=== PATIENT | female | born 1945 | race Caucasian/White ===

== ENCOUNTER → 2017-02-15 | Outpatient (CLI) | payer MEDICARE ==
[2017-02-15 17:44] LABS: Blood Urea Nitrogen 13 mg/dL (7-17); Non-African American GFR(MDRD) >60 (>60 ml/min/1.73 sqM)
== END | disposition home or self-care (01) ==
LOC: LABWHC1 16:58
PROVIDERS: ATTEND Family Medicine
DX: G51.0 Bell's palsy (principal)
CPT/HCPCS: 36415; 82565; 84520

== ENCOUNTER → 2017-02-16 | Outpatient (CLI) | payer MEDICARE ==
--- NOTE | 2017-02-16 15:59 | MR ---
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 TECHNIQUE: Multiplanar, multiecho imaging of the brain was obtained with and without intravenous adm inistration of 20 mL intravenous MultiHance. FINDINGS: Midline structures are unremarkable. There is a normal craniocervical junction. Echoplanar diffusion imaging shows no areas of restricted diffusion. There are normal vascular flow voids. The orbits appear normal. There is no evidence of a CP angle mass lesion There are scattered punctate and some confluent periventricular white matter change likely on the bas is small vessel disease and chronic ischemic change. There is no mass effect, midline shift or intrac ranial blood. Following intravenous administration of gadolinium, I do not see evidence of abnormal enhancement. There is minimal abnormal signal in the left mastoid air cells. This may be secondary to inflammation . It measures 8.2 x 2.7 mm. This area does not enhance. This is distant from the seventh 8th nerve co mplex. IMPRESSION: 1. NO ACUTE INTRACRANIAL ABNORMALITY. 2. 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 3. TINY FOCUS OF INCREASED SIGNAL INVOLVING THE LEFT MASTOID OF QUESTIONABLE ETIOLOGY AND SIGNIFICANC E.
== END | disposition home or self-care (01) ==
LOC: RADMRIMAIN 14:31
PROVIDERS: ATTEND Family Medicine
DX: R90.82 White matter disease, unspecified (principal)
CPT/HCPCS: 70553; A9577

== ENCOUNTER → 2019-07-05 | Outpatient (CLI) | payer MEDICARE ==
--- NOTE | 2019-07-06 09:23 | MM ---
Reason for exam: screening (asymptomatic). Last mammogram was performed 6 years and 2 months ago. History: Patient is postmenopausal. Physical Findings: A clinical breast exam by your physician is recommended on an annual basis and results should be correlated with mammographic findings. MG 3D Screening Mammo W/Cad Bilateral CC and MLO view(s) were taken. Prior study comparison: May 10, 2013, bilateral digital screening mammo w/CAD. The breast tissue is heterogeneously dense. This may lower the sensitivity of mammography. No suspicious abnormality. No significant changes when compared with prior studies. ASSESSMENT: Negative, BI-RAD 1 RECOMMENDATION: Routine screening mammogram of both breasts in 1 year.
== END | disposition home or self-care (01) ==
LOC: RADMAMWWP 08:13
PROVIDERS: ATTEND Family Medicine
DX: Z12.31 Encounter for screening mammogram for malignant neoplasm of breast (principal)
CPT/HCPCS: 77063; 77067

== ENCOUNTER 2019-10-24 06:51 | Day surgery (SDC) | payer MEDICARE ==
[2019-10-22 14:15] VITALS: BMI 35.4
[~2019-10-24 06:51] MED LIST: LACTATED RINGERS 1,000 ML IV SCH; LIDOCAINE 1% 20 ML VIAL (10MG/ML) FOR IV START INTRADERMA PRN
[2019-10-24 07:11] VITALS: TEMP 97.8
[2019-10-24 07:17] LABS: Glucose,Whole Blood 146 mg/dL (75-99)
[2019-10-24] MEDS ORDERED: PROPOFOL 10 MG/ML 20 ML VIAL IV ONE (07:33)
[2019-10-24] MEDS ORDERED: ONDANSETRON 4 MG/2 ML VIAL IVP ONE (07:33)
[2019-10-24 08:24] VITALS: RESP 16
--- NOTE | 2019-10-24 08:24 | P.PCN ---
Date of Procedure: 10/24/19 Procedure(s) Performed: BRIEF HISTORY: Patient is a 73-year-old pleasant female scheduled for an elective colonoscopy as a part of screening for colorectal neoplasia. Her last colonoscopy was 10 years ago. PROCEDURE PERFORMED: Colonoscopy. PREOPERATIVE DIAGNOSIS: Screening for colon cancer. IV sedation per Anesthesia. PROCEDURE: After informed consent was obtained, the patient, was brought into the endoscopy unit. IV sedation was administered by Anesthesia under continuous monitoring. Digital rectal examination was normal. Initially the Olympus CF-160 flexible video colonoscope was then inserted in the rectum, gradually advanced into the cecum without any difficulty. Careful examination was performed as the scope was gradually being withdrawn. Ileocecal valve and the appendiceal orifice were visualized and appeared normal. Prep was excellent. Mucosa of the cecum, ascending colon, transverse colon, descending colon and rectum appeared normal. Anastomosis from previous sigmoid resection was located at 20 cm from the anal was there appeared normal. Moderate left sided diverticulosis seen. Retroflexion was performed in the rectum and no lesions were seen. The patient tolerated the procedure well. IMPRESSION: Normal-appearing colon from rectum to cecum with no evidence of colorectal neoplasia. Moderate left sided diverticulosis RECOMMENDATIONS: Findings of this examination were discussed with the patient as well as a family. She was advised to have a repeat screening colonoscopy in 10 years.
[2019-10-24 08:41] VITALS: BP 164/71; PULSE 79
== END 2019-10-24 09:11 | disposition home or self-care (01) ==
LOC: ORWHC2ENDO 06:51
PROVIDERS: ATTEND Internal Medicine Gastroenterology
DX: Z12.11 Encounter for screening for malignant neoplasm of colon (principal); K57.30 Diverticulosis of large intestine without perforation or abscess without bleeding; I10 Essential (primary) hypertension; E78.5 Hyperlipidemia, unspecified; E11.9 Type 2 diabetes mellitus without complications; K21.9 Gastro-esophageal reflux disease without esophagitis; Z88.7 Allergy status to serum and vaccine; Z88.8 Allergy status to other drugs, medicaments and biological substances; Z79.899 Other long term (current) drug therapy; Z79.84 Long term (current) use of oral hypoglycemic drugs; Z90.49 Acquired absence of other specified parts of digestive tract
CPT/HCPCS: J2405; J2704; G0121

== ENCOUNTER → 2020-07-24 | Outpatient (CLI) | payer MEDICARE ==
[~2020-07-24] MED LIST changes: +AMINOPHYLLINE 500 MG/20 ML VIAL IV ONE; -LACTATED RINGERS 1,000 ML IV SCH; -LIDOCAINE 1% 20 ML VIAL (10MG/ML) FOR IV START INTRADERMA PRN; +REGADENOSON 0.4 MG/5 ML SYRINGE IV ONE
--- NOTE | 2020-07-24 12:05 | NM ---
EXAMINATION TYPE: NM stress lexiscan cardiolite DATE OF EXAM: 07/24/2020 COMPARISON: NONE HISTORY: 74-year-old female with chest pain. Patient with hypertension, diabetes, and family history of coronary artery disease. TECHNIQUE: After the intravenous administration of 10.4 mCi Tc 99m Sestamibi - Cardiolite resting SP ECT images acquired 45 minutes post injection. The patient received 0.4mg Lexiscan, 25.7 mCi Tc 99m Sestamibi - Stress images obtained [address] injection. 100 mg of aminophylline was also administered. FINDINGS: Review of stress and rest SPECT images demonstrates a large fixed perfusion defect involving the ante rior wall, more pronounced on rest images. Gated analysis shows normal wall motion with an estimated left ventricular ejection fraction of 59 %. TID is calculated at 0.98, within normal limits. IMPRESSION: Large fixed defect along the anterior wall, more pronounced on rest images. Findings could represent a combination of prominent attenuation artifact and prior infarct. Clinically correlate. No definite reversibility is seen.
--- NOTE | 2020-07-24 12:15 | P.STRESS ---
- Stress Test Note Stress Test Results/Findings: Exam Performed: NM stress lexiscan cardiolite Exam Date: 07/24/20 Reason for Exam: CHEST PAIN Height: 5 ft 2 in Weight: 195 kg Protocol: LEXISCAN Stage: NA Duration of Exercise: NA Resting Heart Rate: 70 Resting Blood Pressure: 170/85 Maximum Achieved Heart Rate: 89 Maximum Achieved Blood Pressure: 185/74 85% PMHR: NA 100% PMHR: NA METS: NA Technologist Comment: Stress Test Results/Findings: At baseline EKG showed normal sinus rhythm with a heart rate of 70 bpm, normal a xis, nonspecific T-wave flattening of aVL Patient recieved IV infusion of Lexiscan 0.4mg and at peak infusion EKG showed no significant change from baseline EKG. Conclusions: 1. Normal EKG response to Lexiscan infusion 2. Nuclear imaging to be reported separately.
--- NOTE | 2020-07-24 13:54 | EST ---
Stress Test Results/Findings: Exam Performed: NM stress lexiscan cardiolite Exam Date: 07/24/20 Reason for Exam: CHEST PAIN Height: 5 ft 2 in Weight: 195 kg Protocol: LEXISCAN Stage: NA Duration of Exercise: NA Resting Heart Rate: 70 Resting Blood Pressure: 170/85 Maximum Achieved Heart Rate: 89 Maximum Achieved Blood Pressure: 185/74 85% PMHR: NA 100% PMHR: NA METS: NA Technologist Comment: Stress Test Results/Findings: At baseline EKG showed normal sinus rhythm with a heart rate of 70 bpm, normal axis, nonspecific T-wave flattening of aVL Patient recieved IV infusion of Lexiscan 0.4mg and at peak infusion EKG showed no significant change from baseline EKG. Conclusions: 1. Normal EKG response to Lexiscan infusion 2. Nuclear imaging to be reported separately. MTDD
== END | disposition home or self-care (01) ==
LOC: RADNMMAIN 07:54
PROVIDERS: ATTEND Family Medicine
DX: R07.89 Other chest pain (principal)
CPT/HCPCS: 93017; 78452; A9500; J2785

== ENCOUNTER 2021-04-10 12:45 | Emergency (ER) | payer MEDICARE ==
[2021-04-10 13:31] VITALS: BP 174/74; PULSE 73; RESP 18; TEMP 98
[2021-04-10] MEDS ORDERED: TOPICAL SKIN ADHESIVE 1 EACH AMP TOPICAL ONE (14:25)
--- NOTE | 2021-04-10 15:11 | XR ---
Left wrist HISTORY: Trauma and pain 4 views of the left wrist Bone mineralization is mildly reduced. Joint spaces and alignment are maintained. There is soft tissu e swelling present. Some remodeling present at the radiocarpal joint. Question some calcification spenser ng the triangular fibrocartilage, probable geodes present within the carpal bones, cystic lucencies a re suspected. IMPRESSION: No fracture or dislocation is evident.
--- NOTE | 2021-04-10 15:30 | ED ---
General Adult HPI - General Chief complaint: Wound/Laceration Stated complaint: fell L eye laceration Time Seen by Provider: 04/10/21 13:44 Source: patient Mode of arrival: ambulatory Limitations: no limitations - History of Present Illness Initial comments: Patient is a 75-year-old female presenting to the emergency department for a cut above her left eye after she fell today. She states about an hour prior to arrival she tripped on some rugs at her house, falling forward mostly on her left hand but she also did hit her left thigh on the cement. She denies loss of consciousness, she denies having a headache. She states she is not on blood thinners. She states her head does not hurt, she is not dizzy or lightheaded. She denies any neck pain, no chest pain. She denies any nausea or vomiting. She has had previous surgery on her left wrist, this is sore with movement. She denies any other injuries from this fall. She has no further complaints. - Related Data Home Medications Medication Instructions Recorded Confirmed Metoprolol Succinate (ER) [Toprol 50 mg PO DAILY 10/22/16 10/24/19 Xl] metFORMIN HCL 1,000 mg PO BID 10/22/16 10/24/19 Atorvastatin [Lipitor] 20 mg PO DAILY 10/22/19 10/24/19 Omeprazole Magnesium [PriLOSEC OTC] 20 mg PO DAILY 10/22/19 10/24/19 Oxybutynin Chloride [Ditropan XL] 5 mg PO DAILY 10/22/19 10/24/19 lisinopriL [Zestril] 2.5 mg PO DAILY 10/22/19 10/24/19 Allergies Allergy/AdvReac Type Severity Reaction Status Date / Time tetanus and diphtheria Allergy Rapid Verified 10/22/19 13:07 toxoids Heart Rate [tetanus & diphtheria toxoids] cortisone AdvReac redness,swelling Verified 10/22/19 13:07 @injection site Review of Systems ROS Statement: Those systems with pertinent positive or pertinent negative responses have been documented in the HPI. ROS Other: All systems not noted in ROS Statement are negative. Past Medical History Past Medical History: Cancer, Diabetes Mellitus, GERD/Reflux, Hyperlipidemia, Hypertension Additional Past Medical History / Comment(s): recent diarrhea for few days, diverticulitis, ?bladder cancer-discovered when had bowel resection per pt.- never had any tx. for that she knows of History of Any Multi-Drug Resistant Organisms: None Reported Past Surgical History: Bowel Resection, Hysterectomy, Joint Replacement, Orthopedic Surgery Additional Past Surgical History / Comment(s): carpal tunnel surgery, pradeep knee replaced, left wrist surg. Past Anesthesia/Blood Transfusion Reactions: Postoperative Nausea & Vomiting (PONV) Past Psychological History: No Psychological Hx Reported Smoking Status: Never smoker Past Alcohol Use History: Occasional Past Drug Use History: None Reported General Exam - General Exam Comments Initial Comments: GENERAL: Patient is well-developed and well-nourished. Patient is nontoxic and in no acute distress. HEAD: Atraumatic, normocephalic. There are no hematomas, no signs of basal skull fracture. EYES: Pupils equal round and reactive to light, extraocular movements intact, sclera anicteric, conjunctiva are normal. Eyelids were unremarkable. Patient is a laceration in her left eyebrow, no pain with palpation surrounding the wound. ENT: TMs normal, nares patent, oropharynx clear without exudates. Moist mucous membranes. NECK: Normal range of motion, supple without lymphadenopathy or JVD. She has no midline tenderness. LUNGS: Unlabored respirations. Breath sounds clear to auscultation bilaterally and equal. No wheezes rales or rhonchi. HEART: Regular rate and rhythm without murmurs, rubs or gallops. ABDOMEN: Soft, nontender, normoactive bowel sounds. No guarding, no rebound. No masses appreciated. : Deferred MUSCULOSKELETAL: Patient has a mild pain to palpation of the left wrist, she does have full range of motion, pain at the end range. She is neurovascular intact. She has a small bruise to her left anterior knee, she has full range of motion and no pain with palpation. No clubbing or cyanosis. NEUROLOGICAL: Patient is alert and oriented x 3. Motor and sensory are also intact. Cranial nerves II through XII grossly intact. Symmetrical smile. Normal speech, normal gait. PSYCH: Normal mood, normal affect. SKIN: Warm, Dry, normal turgor, no rashes. Patient has a 1 cm laceration in her left eyebrow, no active bleeding. There is some bruising surrounded this laceration as well. Limitations: no limitations Course Vital Signs 04/10/21 13:28 Temperature 98.0 F Pulse Rate 73 Respiratory 18 Rate Blood Pressure 174/74 O2 Sat by Pulse 96 Oximetry Procedures - Laceration Laceration #1 Consent Obtained: verbal consent Indication: laceration Site: face (Left eyebrow) Size (cm): 1 Description: linear Depth: simple, single layer Pre-repair: irrigated extensively Patient Tolerated Procedure: well Additional Comments: Patient refused sutures, I did close the wound with topical skin adhesive, and Steri-Strips. She tolerated procedure well. Medical Decision Making - Medical Decision Making Patient is a 75-year-old female here after she fell complaining of left wrist pain. She also has a 1 cm laceration in her left eyebrow. There is no active bleeding, she is not on blood thinners, no loss of consciousness, no acute neuro symptoms on exam. Patient declined a CT of her head. X-rays of her left wrist reveal no acute fractures dislocations. Patient also refused sutures of her eyebrow wound. I did close the wound with topical skin adhesive and Steri- Strips. There is no active bleeding. Patient is stable for discharge. I recommended Tylenol or ibuprofen for her discomfort, ice to her eye as well as her wrist. Return parameters were discussed with the patient and she verbalized understanding. Case discussed with Dr. Carpenter. Disposition Clinical Impression: Fall, Laceration of left eyebrow, Left wrist pain Disposition: HOME SELF-CARE Condition: Stable Instructions (If sedation given, give patient instructions): Skin Adhesive Care (ED) Additional Instructions: Please return to the Emergency Department if symptoms worsen or any other concerns. Skin glue will slowly dissolve after about 5-7 days. Keep area clean and dry. Apply ice to your left wrist. X-rays are negative for fractures. Is patient prescribed a controlled substance at d/c from ED?: No Referrals: Tyler Alfredo MD [Primary Care Provider] - 1-2 days Time of Disposition: 15:30
== END 2021-04-10 15:37 | disposition home or self-care (01) ==
LOC: EC 12:45
DX: S01.112A Laceration without foreign body of left eyelid and periocular area, initial encounter (principal); M25.532 Pain in left wrist; E11.9 Type 2 diabetes mellitus without complications; E78.5 Hyperlipidemia, unspecified; I10 Essential (primary) hypertension; K21.9 Gastro-esophageal reflux disease without esophagitis; Z79.899 Other long term (current) drug therapy; Z85.51 Personal history of malignant neoplasm of bladder; Z79.84 Long term (current) use of oral hypoglycemic drugs; W01.118A Fall on same level from slipping, tripping and stumbling with subsequent striking against other sharp object, initial encounter; Y92.009 Unspecified place in unspecified non-institutional (private) residence as the place of occurrence of the external cause
CPT/HCPCS: 12011; 99283

== ENCOUNTER → 2021-11-26 | Outpatient (CLI) | payer MEDICARE ==
--- NOTE | 2021-11-30 09:38 | MM ---
Reason for exam: screening (asymptomatic). Last mammogram was performed 2 years and 5 months ago. History: Patient is postmenopausal. Physical Findings: A clinical breast exam by your physician is recommended on an annual basis and results should be correlated with mammographic findings. MG 3D Screening Mammo W/Cad Bilateral CC and MLO view(s) were taken. Prior study comparison: July 05, 2019, bilateral MG 3d screening mammo w/cad. There are scattered fibroglandular densities. No significant changes when compared with prior studies. ASSESSMENT: Negative, BI-RAD 1 RECOMMENDATION: Routine screening mammogram of both breasts in 1 year.
== END | disposition home or self-care (01) ==
LOC: RADMAMWWP 09:00
PROVIDERS: ATTEND Family Medicine
DX: Z12.31 Encounter for screening mammogram for malignant neoplasm of breast (principal); Z78.0 Asymptomatic menopausal state
CPT/HCPCS: 77063; 77067

== ENCOUNTER → 2022-07-20 | Outpatient (CLI) | payer MEDICARE ==
[2022-07-20 09:55] LABS: African American GFR (CKD) >90 (>60 ml/min/1.73 sqM); Blood Urea Nitrogen 14 mg/dL (7-17); Non-African American GFR(CKD) 87 (>60 ml/min/1.73 sqM)
--- NOTE | 2022-07-20 13:25 | CT ---
EXAMINATION TYPE: CT urogram wo/w con CT DLP: 2533.50 mGycm, Automated exposure control for dose reduction was used. DATE OF EXAM: 07/20/2022 12:55 PM COMPARISON: None CLINICAL INDICATION:Female, 76 years old with history of C67.9 MALIGNANT NEOPLASM OF BLADDER, UNSPECI FIED, Malignant neoplasm of bladder, unspecified TECHNIQUE: Urogram with imaging of the abdomen and pelvis. Coronal and sagittal reformats were performed. 2D and 3D reconstructions are performed to assist visualization of the urinary tract on a separate workstat ion. Contrast used:100 ml mL of Isovue 300 without and with IV Contrast, Oral contrast used: None. FINDINGS: GENITOURINARY: RIGHT KIDNEY AND URETER: No calculi. No hydronephrosis or hydroureter. No renal mass. There are two s mall to accurately characterize well-circumscribed areas of decreased attenuation which are statistic ally likely to represent benign simple cysts. No urothelial lesions: no filling defect, dilation, str icture or wall thickening. LEFT KIDNEY AND URETER: No calculi. No hydronephrosis or hydroureter. No renal mass or other lesions. Limited distal right ureter secondary to lack of excreted IV contrast with fat said urothelial lesio ns: no filling defect, dilation, stricture or wall thickening. URINARY BLADDER: Limited evaluation no calculi, or mass visualized. REPRODUCTIVE: Unremarkable. ABDOMEN LIVER: Unremarkable. GALLBLADDER AND BILE DUCTS: Unremarkable PANCREAS: Unremarkable. SPLEEN: Unremarkable. ADRENAL GLANDS: Unremarkable. STOMACH AND BOWEL: . No evidence of bowel obstruction. Sutures seen within around the colon. There is multiple colonic diverticula present. PERITONEUM: No evidence of pneumoperitoneum, free fluid, or adenopathy. VASCULATURE: No aortic aneurysm. Multilevel disc degeneration changes are seen throughout the spine. MUSCULOSKELETAL: No acute osseous abnormalities. SOFT TISSUE/ABDOMINAL WALL: Fat filled umbilical hernia and ventral wall hernia. LOWER CHEST: Atherosclerosis of the thoracic aorta, coronary arteries and aortic valve calcifications heart is mildly enlarged for size.. IMPRESSION: 1. No evidence of urolithiasis or of upper renal/urothelial neoplasm. Limited evaluation of the bladd er secondary to partial filling with excreted IV contrast. 2. Colonic diverticulosis 3. Umbilical and ventral wall fat-containing hernias.
== END | disposition home or self-care (01) ==
LOC: RADCTMAIN 09:02
PROVIDERS: ATTEND Urology
DX: C67.9 Malignant neoplasm of bladder, unspecified (principal); K40.90 Unilateral inguinal hernia, without obstruction or gangrene, not specified as recurrent; K42.9 Umbilical hernia without obstruction or gangrene
CPT/HCPCS: 82565; 84520; 74178; 36415; 74400; Q9967

== ENCOUNTER → 2024-02-03 | Outpatient (CLI) | payer MEDICARE ==
--- NOTE | 2024-02-06 12:01 | MM ---
Reason for Exam: Screening (asymptomatic). Last mammogram was performed 2 year(s) and 2 month(s) ago. Patient History: Menarche at age 14. First Full-Term at age 23. Left ovary removed at age 62. Hysterectomy at age 62. Postmenopausal. Risk Values: Cornelia 5 year model risk: 1.0%. NCI Lifetime model risk: 2.1%. Prior Study Comparison: 05/10/2013 Bilateral Screening Mammogram, [facility]. 07/05/2019 Bilateral Screening Mammogram, [facility]. 11/26/2021 Bilateral Screening Mammogram, [facility]. Tissue Density: There are scattered areas of fibroglandular density. Findings: Analyzed By CAD. There is no suspicious group of microcalcifications or new suspicious mass. Overall Assessment: Negative, BI-RAD 1 Management: Screening Mammogram of both breasts in [address] [facility] will attempt to contact patient to return for supplemental views and ultrasound if indicated. Patient should continue monthly self-breast exams. A clinical breast exam by your physician is recommended on an annual basis. This exam should not preclude additional follow-up of suspicious palpable abnormalities. Note on Cornelia scores and lifetime risk: 1. A Cornelia score greater than 3% is considered moderate risk. If this is the case, consider specialist referral to assess eligibility for a risk reducing agent. 2. If overall lifetime risk for the development of breast cancer is 20% or higher, the patient may qualify for future screening with alternating mammogram and breast MRI. Electronically signed and approved by: Sanjeev Hillman DO
== END | disposition home or self-care (01) ==
LOC: RADMAMWWP 11:20
PROVIDERS: ATTEND Family Medicine
DX: Z12.31 Encounter for screening mammogram for malignant neoplasm of breast (principal); Z78.0 Asymptomatic menopausal state
CPT/HCPCS: 77063; 77067

== ENCOUNTER 2024-06-03 12:31 | Observation (INO) | payer MEDICARE ==
--- NOTE | 2024-06-03 12:48 | ED ---
Chest Pain HPI - General Chief Complaint: Chest Pain Stated Complaint: Chest Pain Time Seen by Provider: 06/03/24 12:40 Source: patient, RN notes reviewed, old records reviewed Mode of arrival: ambulatory Limitations: no limitations - History of Present Illness Initial Comments: This is a 78-year-old female to the ER for evaluation of severe epigastric abdominal pain chest pain nausea vomiting for 3 days worsening here in the emergency department with severe right upper quadrant pain no history of heart disease does have history of high blood pressure patient's pain has been worse at night and sometimes worse in the morning when she wakes up but getting worse for 3 days. No fevers MD Complaint: chest pain -: hour(s) Onset: during rest, during exertion Pain Location: substernal, left chest Pain Radiation: LUE Severity: moderate Severity scale (1-10): 4 Quality: sharp Consistency: constant Improves With: nothing Worsens With: nothing Context: recent illness Anginal Symptoms: nausea, vomiting, dyspnea Other Symptoms: cough Treatments Prior to Arrival: none - Related Data Home Medications Medication Instructions Recorded Confirmed Aspirin EC [Ecotrin Low Dose] 81 mg PO DAILY 06/03/24 06/03/24 Atorvastatin [Lipitor] 40 mg PO DAILY 06/03/24 06/03/24 Calcium Citrate/Vitamin D3 1 tab PO DAILY 06/03/24 06/03/24 [Citracal + D Maximum Caplet] Cetirizine HCl [Zyrtec] 10 mg PO DAILY 06/03/24 06/03/24 Empagliflozin [Jardiance] 10 mg PO DAILY 06/03/24 06/03/24 Glimepiride [Amaryl] 2 mg PO DAILY 06/03/24 06/03/24 Ibuprofen [Advil] 200 mg PO DAILY 06/03/24 06/03/24 Multivit-Min/Iron Fum/Folic AC 1 tab PO DAILY 06/03/24 06/03/24 [One-A-Day Women's Complete Tab] Pentoxifylline [TRENtal] 400 mg PO TID 06/03/24 06/03/24 Turmeric Root Extract [Turmeric] 500 mg PO DAILY 06/03/24 06/03/24 lisinopriL [Zestril] 20 mg PO DAILY 06/03/24 06/03/24 Allergies Allergy/AdvReac Type Severity Reaction Status Date / Time tetanus and diphtheria Allergy Rapid Verified 06/03/24 14:29 toxoids Heart Rate [tetanus & diphtheria toxoids] cortisone AdvReac redness,swelling Verified 06/03/24 14:29 @injection site Review of Systems ROS Statement: Those systems with pertinent positive or pertinent negative responses have been documented in the HPI. ROS Other: All systems not noted in ROS Statement are negative. EKG Findings - EKG Comments: EKG Findings:: EKG is sinus tachycardia 108 TX 153 QRS 98 QTc 382 - EKG Results: EKG: interpreted by NAOMI Past Medical History Past Medical History: Cancer, Diabetes Mellitus, GERD/Reflux, Hyperlipidemia, Hypertension Additional Past Medical History / Comment(s): recent diarrhea for few days, diverticulitis, ?bladder cancer-discovered when had bowel resection per pt.- never had any tx. for that she knows of History of Any Multi-Drug Resistant Organisms: None Reported Past Surgical History: Bowel Resection, Hysterectomy, Joint Replacement, Orthopedic Surgery Additional Past Surgical History / Comment(s): carpal tunnel surgery, pradeep knee replaced, left wrist surg. Past Anesthesia/Blood Transfusion Reactions: Postoperative Nausea & Vomiting (PONV) Past Psychological History: No Psychological Hx Reported Smoking Status: Never smoker Past Alcohol Use History: Occasional Past Drug Use History: None Reported General Exam Limitations: no limitations General appearance: alert, in no apparent distress Head exam: Present: atraumatic, normocephalic, normal inspection Eye exam: Present: normal appearance, PERRL, EOMI. Absent: scleral icterus, conjunctival injection, periorbital swelling ENT exam: Present: normal exam, mucous membranes moist Neck exam: Present: normal inspection. Absent: tenderness, meningismus, lymphadenopathy Respiratory exam: Present: normal lung sounds bilaterally. Absent: respiratory distress, wheezes, rales, rhonchi, stridor Cardiovascular Exam: Present: regular rate, normal rhythm, normal heart sounds. Absent: systolic murmur, diastolic murmur, rubs, gallop, clicks GI/Abdominal exam: Present: soft, normal bowel sounds. Absent: distended, tenderness, guarding, rebound, rigid Extremities exam: Present: normal inspection, full ROM, normal capillary refill. Absent: tenderness, pedal edema, joint swelling, calf tenderness Back exam: Present: normal inspection Neurological exam: Present: alert, oriented X3, CN II-XII intact Psychiatric exam: Present: normal affect, normal mood Skin exam: Present: warm, dry, intact, normal color. Absent: rash Course Vital Signs 06/03/24 12:33 Temperature 98.5 F Pulse Rate 110 H Respiratory 20 Rate Blood Pressure 152/80 O2 Sat by Pulse 98 Oximetry - Reevaluation(s) Reevaluation #1: 06/03/24 13:33 Medical record is reviewed Reevaluation #2: 06/03/24 13:34 Pain is improved Reevaluation #4: Was pt. sent in by a medical professional or institution (, DARRELL, POWERHOUSE ELECTRICIAN APPRENTICE, urgent care, hospital, or fdc...) When possible be specific @ -no Did you speak to anyone other than the patient for history (EMS, parent, family, police, friend...)? What history was obtained from this source @ -no Did you review nursing and triage notes (agree or disagree)? Why? @ -agree Are old charts reviewed (outside hosp., previous admission, EMS record, old EKG, old radiological studies, urgent care reports/EKG's, fdc records)? Report findings @ -yes Differential Diagnosis (chest pain, altered mental status, abdominal pain women, abdominal pain men, vaginal bleeding, weakness, fever, dyspnea, syncope, headache, dizziness, GI bleed, back pain, seizure, CVA, palpatations, mental health, musculoskeletal)? @ -prior EKG interpreted by me (3pts min.). @ -yes X-rays interpreted by me (1pt min.). @ -yes negative for acute disease CT interpreted by me (1pt min.). @ -no U/S interpreted by me (1pt. min.). @ -no What testing was considered but not performed or refused? (CT, X-rays, U/S, labs)? Why? @ -none What meds were considered but not given or refused? Why? @ -none Did you discuss the management of the patient with other professionals (professionals i.e. DARRELL Mayen, POWERHOUSE ELECTRICIAN APPRENTICE, lab, RT, psych nurse, social worker clinical, program and research coordinator, teacher, disabilities services officer, window caser)? Give summary @ -no Was smoking cessation discussed for >3mins.? @ -no Was critical care preformed (if so, how long)? @ -no Were there social determinants of health that impacted care today? How? (Home lessness, low income, unemployed, alcoholism, drug addiction, transportation, low edu. Level, literacy, decrease access to med. care, correction, rehab)? @ -none Was there de-escalation of care discussed even if they declined (Discuss DNR or withdrawal of care, Hospice)? DNR status @ -no What co-morbidities impacted this encounter? (DM, HTN, Smoking, COPD, CAD, Cancer, CVA, ARF, Chemo, Hep., AIDS, mental health diagnosis, sleep apnea, morbid obesity)? @ -none Was patient admitted / discharged? Hospital course, mention meds given and route, prescriptions, significant lab abnormalities, going to OR and other pertinent info. @ - Undiagnosed new problem with uncertain prognosis? @ -no Drug Therapy requiring intensive monitoring for toxicity (Heparin, Nitro, Insulin, Cardizem)? @ -no Were any procedures done? @ -no Diagnosis/symptom? @ - Acute, or Chronic, or Acute on Chronic? @ -Acute Uncomplicated (without systemic symptoms) or Complicated (systemic symptoms)? @ -Complicated Side effects of treatment? @ -no Exacerbation, Progression, or Severe Exacerbation? @ -exacerbation Poses a threat to life or bodily function? How? (Chest pain, [place], [place], pneumonia, PE, COPD, DKA, ARF, appy, cholecystitis, CVA, Diverticulitis, Homicidal, Suicidal, threat to staff... and all critical care pts) @ -yes Reevaluation #5: Differential Abdominal Pain Women: Appendicitis, Cholecystitis, diverticulosis, ischemic bowel, pancreatitis, hepatitis, UTI, gastroenteritis, AAA, incarcerated hernia, bowel obstruction, constipation, inflammatory bowel, hepatitis, peptic ulcer disease, splenic infarction, perforated viscus, vulvitis, ovarian torsion, PID, kidney stone, placenta abruption, this is not meant to be an all-inclusive list Differential Chest Pain: Stable Angina, Unstable Angina, STEMI, NSTEMI Aortic Dissection, Pneumothorax, Musculoskeletal, Esophageal Spasm GERD, Cholecystitis, Pancreatitis, Zoster, this is not meant to be an all-inclusive list. Disposition Clinical Impression: Atypical chest pain, Biliary colic, Gallstones Disposition: ADMITTED IP TO THIS HOSP Condition: Fair Is patient prescribed a controlled substance at d/c from ED?: No Referrals: Yvon Vance DO [Primary Care Provider] - 1-2 days Time of Disposition: 16:20
[2024-06-03 13:15] LABS: Basophils % (A) 0 %; Eosinophils # (A) 0.1 k/uL (0-0.7); Eosinophils % (A) 1 %; HCT 51.2 % (34.0-46.0); Lymphocytes # (A) 1.6 k/uL (1.0-4.8); Lymphocytes % (A) 12 %; MCHC 33.3 g/dL (31.0-37.0); MCV 93.3 fL (80.0-100.0); Mean Platelet Volume 8.3; Monocytes # (A) 0.6 k/uL (0-1.0); Monocytes % (A) 4 %; Neutrophils # (A) 10.2 k/uL (1.3-7.7); Neutrophils % (A) 80 %; Platelet Count 154 k/uL (150-450); RBC 5.49 m/uL (3.80-5.40); WBC 12.7 k/uL (3.8-10.6)
[2024-06-03] MEDS: ONDANSETRON 4 MG/2 ML VIAL IVP STA (13:19)
[2024-06-03] MEDS: HYDROmorphone 1 MG/ML 1 ML SYRINGE IVP STA (13:19)
[2024-06-03] MEDS: PANTOPRAZOLE 40 MG/10 ML VIAL IVP STA (13:20)
[2024-06-03 13:24] LABS: ALT 15 U/L (4-34); AST 23 U/L (14-36); African American GFR (CKD) >90 (>60 ml/min/1.73 sqM); Albumin 4.3 g/dL (3.5-5.0); Alkaline Phosphatase 82 U/L (38-126); Anion Gap 8 mmol/L; Blood Urea Nitrogen 15 mg/dL (7-17); Calcium 9.5 mg/dL (8.4-10.2); Carbon Dioxide 27 mmol/L (22-30); Chloride 103 mmol/L (98-107); Glucose 197 mg/dL (74-99); Lipase 122 U/L (23-300); Magnesium 1.8 mg/dL (1.6-2.3); Non-African American GFR(CKD) 89 (>60 ml/min/1.73 sqM); Sodium 138 mmol/L (137-145); Total Bilirubin 1.6 mg/dL (0.2-1.3); Total Protein 7.5 g/dL (6.3-8.2)
[2024-06-03 13:27] LABS: Prothrombin Time 10.8 sec (10.0-12.5)
[2024-06-03 13:33] LABS: NT-Pro-B-Type Natriuretic Pept 400 pg/mL
--- NOTE | 2024-06-03 14:03 | US ---
EXAMINATION TYPE: US gallbladder DATE OF EXAM: 06/03/2024 COMPARISON: NONE CLINICAL INDICATION: Female, 78 years old with history of pain; Abdomen pain TECHNIQUE: Multiple sonographic images of the right upper quadrant are obtained. FINDINGS: EXAM MEASUREMENTS: Liver Length: 15.4 cm Gallbladder Wall: 0.2 cm CBD: 0.5 cm Right Kidney: 11.1 x 4.7 x 5.1 cm Pancreas: obscured by overlying midline bowel gas Liver: wnl Gallbladder: borderline hydropic, multiple small echogenic foci Evidence for sonographic Davalos's sign: yes CBD: visualized portions wnl Right Kidney: wnl IMPRESSION: Borderline gallbladder hydrops with small gallstones.
--- NOTE | 2024-06-03 14:51 | XR ---
EXAMINATION TYPE: XR chest 2V DATE OF EXAM: 06/03/2024 2:04 PM CLINICAL INDICATION:Female, 78 years old with history of Chest Pain; COMPARISON: Chest radiographs from 10/22/2016 TECHNIQUE: XR chest 2V Frontal view of the chest. FINDINGS: Lungs/Pleura: There is no evidence of pleural effusion, focal consolidation, or pneumothorax. Pulmonary vascularity: Unremarkable. Heart/mediastinum: Cardiomediastinal silhouette is unremarkable. Musculoskeletal: Degenerative changes of the shoulder joints. Other findings: None IMPRESSION: No acute cardiopulmonary disease/process.
[2024-06-03] MEDS ORDERED: NALOXONE 0.4 MG/ML 1 ML VIAL IV PRN (16:23)
[2024-06-03] MEDS: AMPICILLIN-SULBACTAM 3 GM in SODIUM CHLORIDE 0.9% 100 ML IVPB STA (17:55)
[2024-06-03] MEDS: SODIUM CHLORIDE 0.9% 1,000 ML IV SCH (17:56)
[2024-06-03] MEDS ORDERED: DEXTROSE 50% SYRINGE 50 ML IVP PRN ×2 (20:16)
[2024-06-03 20:38] LABS: Glucose,Whole Blood 141 mg/dL (70-110)
[2024-06-03] MEDS: INSULIN ASPART (NovoLOG) 100 UNIT/ML VIAL SQ SCH (21:51)
[2024-06-03] MEDS: ONDANSETRON 4 MG/2 ML VIAL IVP PRN (22:28)
[2024-06-03] MEDS: PENTOXIFYLLINE 400 MG TABLET.ER PO SCH (22:30)
[2024-06-04] MEDS: HYDROmorphone 1 MG/ML 1 ML SYRINGE IVP PRN (00:02)
[2024-06-04 05:35] LABS: Glucose,Whole Blood 122 mg/dL (70-110)
[2024-06-04] MEDS: PIPERACILLIN-TAZOBACTAM 3.375 GM in SODIUM CHLORIDE 0.9% 100 ML IVPB SCH (09:08)
[2024-06-04] MEDS: ATORVASTATIN 40 MG TAB PO SCH (09:09)
[2024-06-04 10:53] LABS: Basophils # (A) 0.03 X 10*3/uL (0.00-0.10); Basophils % (A) 0.3 %; Eosinophils # (A) 0.09 X 10*3/uL (0.04-0.35); Eosinophils % (A) 0.9 %; HCT 45.3 % (37.2-46.3); HGB 15.4 g/dL (12.0-15.0); Lymphocytes # (A) 2.21 X 10*3/uL (0.90-5.00); MCH 31.4 pg (27.0-32.0); MCV 92.4 FL (80.0-97.0); Mean Platelet Volume 11.6 FL (9.5-12.2); Monocytes # (A) 0.85 X 10*3/uL (0.20-1.00); Monocytes % (A) 8.1 %; NRBC Per 100 WBC 0 X 10*3/uL (0.00-0.01); Neutrophils # (A) 7.33 X 10*3/uL (1.80-7.70); Neutrophils % (A) 69.4 %; Platelet Count 149 X 10*3/uL (140-440); RDW 13.6 % (11.5-14.5); WBC 10.54 X 10*3/uL (4.50-10.00)
[2024-06-04 11:08] LABS: ALT 10 U/L (8-44); AST 16 U/L (13-35); Albumin 3.7 g/dL (3.8-4.9); Albumin/Globulin Ratio 1.42 Ratio (1.60-3.17); Alkaline Phosphatase 74 U/L (41-126); BUN/Creat Ratio 22.33 Ratio (12.00-20.00); Blood Urea Nitrogen 13.4 mg/dL (9.0-27.0); Calcium 8.6 mg/dL (8.7-10.3); Carbon Dioxide 25.5 mmol/L (21.6-31.8); Chloride 102 mmol/L (96-109); Globulin 2.6 g/dL (1.6-3.3); Glucose 116 mg/dL (70-110); Magnesium 1.8 mg/dL (1.5-2.4); Phosphorus 2.7 mg/dL (2.4-5.1); Potassium 3.7 mmol/L (3.5-5.5); Sodium 139 mmol/L (135-145); Total Protein 6.3 g/dL (6.2-8.2)
--- NOTE | 2024-06-04 11:37 | P.GSHP ---
History of Present Illness H&P Date: 06/04/24 CHIEF COMPLAINT: Abdominal pain HISTORY OF PRESENT ILLNESS: This is a 78-year-old female who presented with right upper quadrant and epigastric abdominal pain x 4 days. Patient reports that pain started on Tuesday after eating pizza. She had pain that was in the right upper quadrant that radiated to the epigastric area. She was having nausea and vomiting with chills and sweats. She also reports having constipation with no bowel movements x 4 days. Past surgical history does include bowel resection for diverticulitis and partial hysterectomy. Patient did have bladder cancer and received chemotherapy. Gallbladder ultrasound had reported gallbladder hydrops and small gallstones. Patient mated to surgical service for cholecystitis. Patient denies any cardiac history. PAST MEDICAL HISTORY: See below PAST SURGICAL HISTORY: See below MEDICATIONS: See below ALLERGIES: See below SOCIAL HISTORY: No illicit drug use. REVIEW OF SYSTEMS: CONSTITUTIONAL: Denies fever or chills. HEENT: Denies blurred vision, vision changes, or eye pain. Denies hemoptysis CARDIOVASCULAR: Denies chest pain or pressure. RESPIRATORY: No shortness of breath. GASTROINTESTINAL: See HPI for pertinent findings HEMATOLOGIC: Denies bleeding disorders. GENITOURINARY: Denies any blood in urine or increased urinary frequency. SKIN: Denies pruitis. Denies rash. PHYSICAL EXAM: VITAL SIGNS: Reviewed GENERAL: Well-developed in no acute distress. HEENT: No sclera icterus. Extraocular movements grossly intact. Moist buccal mucosa. Head is atraumatic, normocephalic. No nasal drainage. ABDOMEN: Soft. Nondistended. Tenderness with palpation to epigastric area NEUROLOGIC: Alert and oriented. Cranial nerves II through XII grossly intact. LABORATORY DATA: WBC 12.7 down to 10.54 Hgb 17 down to 15.4 platelets 149 Sodium 139 potassium 3.7 creatinine 0.6 Lipase 122 LFTs normal total bilirubin 1.6 down to 1.0 IMAGING: Gallbladder ultrasound reports borderline gallbladder hydrops with small gallstones ASSESSMENT: 1. Acute cholecystitis PLAN: -Patient scheduled for laparoscopic cholecystectomy today with Dr. Lerner -Keep patient n.p.o. -Continue IV antibiotics -Continue IV fluids -Continue pain medicine and antiemetics as needed Physician Conference Assistant note has been reviewed by physician. Signing provider agrees with the documented findings, assessment, and plan of care. I have personally seen and examined the patient, reviewed the BOX TOE CUTTER /PAs history, exam and MDM and agree with the assessment and plan as written. Based on total visit time, I have performed more than 50% of the visit. As above: Patient with acute calculus cholecystitis. Options discussed. Will proceed with laparoscopic, possible open cholecystectomy at this time. Risks of bleeding, infection, bile leak, bile duct injury, retained common bile duct stone, trocar injury, conversion to an open procedure, hernia, anesthesia related complications were reviewed. The patient understands and wishes to proceed. Past Medical History Past Medical History: Cancer, Diabetes Mellitus, GERD/Reflux, Hypertension Additional Past Medical History / Comment(s): diverticulitis, ?bladder cancer- discovered when had bowel resection per pt.-never had any tx. for that she knows of History of Any Multi-Drug Resistant Organisms: None Reported Past Surgical History: Bowel Resection, Hysterectomy, Joint Replacement, Orthopedic Surgery Additional Past Surgical History / Comment(s): carpal tunnel surgery, pradeep knee replaced, left wrist surg., bilat cataract surgery Past Anesthesia/Blood Transfusion Reactions: Postoperative Nausea & Vomiting (PONV) Past Psychological History: No Psychological Hx Reported Smoking Status: Former smoker Past Alcohol Use History: Occasional Additional Past Alcohol Use History / Comment(s): quit smoking @age of 24, smoked for 8 yrs. Past Drug Use History: None Reported - Past Family History Father Family Medical History: Cancer Mother Family Medical History: Cancer Medications and Allergies Home Medications Medication Instructions Recorded Confirmed Type Aspirin EC [Ecotrin Low Dose] 81 mg PO DAILY 06/03/24 06/03/24 History Atorvastatin [Lipitor] 40 mg PO DAILY 06/03/24 06/03/24 History Calcium Citrate/Vitamin D3 1 tab PO DAILY 06/03/24 06/03/24 History [Citracal + D Maximum Caplet] Cetirizine HCl [Zyrtec] 10 mg PO DAILY 06/03/24 06/03/24 History Empagliflozin [Jardiance] 10 mg PO DAILY 06/03/24 06/03/24 History Glimepiride [Amaryl] 2 mg PO DAILY 06/03/24 06/03/24 History Ibuprofen [Advil] 200 mg PO DAILY 06/03/24 06/03/24 History Multivit-Min/Iron Fum/Folic AC 1 tab PO DAILY 06/03/24 06/03/24 History [One-A-Day Women's Complete Tab] Pentoxifylline [TRENtal] 400 mg PO TID 06/03/24 06/03/24 History Turmeric Root Extract [Turmeric] 500 mg PO DAILY 06/03/24 06/03/24 History lisinopriL [Zestril] 20 mg PO DAILY 06/03/24 06/03/24 History Allergies Allergy/AdvReac Type Severity Reaction Status Date / Time tetanus and diphtheria Allergy Rapid Verified 06/03/24 14:29 toxoids Heart Rate [tetanus & diphtheria toxoids] cortisone AdvReac redness,swelling Verified 06/03/24 14:29 @injection site Surgical - Exam Vital Signs Temp Pulse Resp BP Pulse Ox 98.5 F 110 H 20 152/80 98 06/03/24 12:33 06/03/24 12:33 06/03/24 12:33 06/03/24 12:33 06/03/24 12:33 Results - Labs 06/04/24 05:56 06/04/24 05:56 Abnormal Lab Results - Last 24 Hours (Table) 06/03/24 06/03/24 06/03/24 Range/Units 12:51 12:51 20:37 WBC 12.7 H (3.8-10.6) k/uL RBC 5.49 H (3.80-5.40) m/uL Hgb 17.0 H (11.4-16.0) gm/dL Hct 51.2 H (34.0-46.0) % Neutrophils # 10.2 H (1.3-7.7) k/uL BUN/Creatinine Ratio (12.00-20.00) Ratio Glucose 197 H (74-99) mg/dL POC Glucose (mg/dL) 141 H (70-110) mg/dL Hemoglobin A1c (<=6.0) % Calcium (8.7-10.3) mg/dL Total Bilirubin 1.6 H (0.2-1.3) mg/dL Albumin (3.8-4.9) g/dL Albumin/Globulin Ratio (1.60-3.17) Ratio 06/04/24 06/04/24 06/04/24 Range/Units 05:33 05:56 05:56 WBC 10.54 H (3.8-10.6) k/uL RBC (3.80-5.40) m/uL Hgb 15.4 H (11.4-16.0) gm/dL Hct (34.0-46.0) % Neutrophils # (1.3-7.7) k/uL BUN/Creatinine Ratio (12.00-20.00) Ratio Glucose (74-99) mg/dL POC Glucose (mg/dL) 122 H (70-110) mg/dL Hemoglobin A1c 7.0 H (<=6.0) % Calcium (8.7-10.3) mg/dL Total Bilirubin (0.2-1.3) mg/dL Albumin (3.8-4.9) g/dL Albumin/Globulin Ratio (1.60-3.17) Ratio 06/04/24 Range/Units 05:56 WBC (3.8-10.6) k/uL RBC (3.80-5.40) m/uL Hgb (11.4-16.0) gm/dL Hct (34.0-46.0) % Neutrophils # (1.3-7.7) k/uL BUN/Creatinine Ratio 22.33 H (12.00-20.00) Ratio Glucose 116 H (74-99) mg/dL POC Glucose (mg/dL) (70-110) mg/dL Hemoglobin A1c (<=6.0) % Calcium 8.6 L (8.7-10.3) mg/dL Total Bilirubin (0.2-1.3) mg/dL Albumin 3.7 L (3.8-4.9) g/dL Albumin/Globulin Ratio 1.42 L (1.60-3.17) Ratio Diabetes panel 06/03/24 06/04/24 06/04/24 Range/Units 12:51 05:56 05:56 Sodium 138 139 (137-145) mmol/L Potassium 4.0 3.7 (3.5-5.1) mmol/L Chloride 103 102 (98-107) mmol/L Carbon Dioxide 27 25.5 (22-30) mmol/L BUN 15 13.4 (7-17) mg/dL Creatinine 0.59 0.6 (0.52-1.04) mg/dL Glucose 197 H 116 H (74-99) mg/dL Hemoglobin A1c 7.0 H (<=6.0) % Calcium 9.5 8.6 L (8.4-10.2) mg/dL AST 23 16 (14-36) U/L ALT 15 10 (4-34) U/L Alkaline Phosphatase 82 74 (38-126) U/L Total Protein 7.5 6.3 (6.3-8.2) g/dL Albumin 4.3 3.7 L (3.5-5.0) g/dL Calcium panel 06/03/24 06/04/24 Range/Units 12:51 05:56 Calcium 9.5 8.6 L (8.4-10.2) mg/dL Phosphorus 2.7 (2.4-5.1) mg/dL Albumin 4.3 3.7 L (3.5-5.0) g/dL Pituitary panel 06/03/24 06/04/24 Range/Units 12:51 05:56 Sodium 138 139 (137-145) mmol/L Potassium 4.0 3.7 (3.5-5.1) mmol/L Chloride 103 102 (98-107) mmol/L Carbon Dioxide 27 25.5 (22-30) mmol/L BUN 15 13.4 (7-17) mg/dL Creatinine 0.59 0.6 (0.52-1.04) mg/dL Glucose 197 H 116 H (74-99) mg/dL Calcium 9.5 8.6 L (8.4-10.2) mg/dL Adrenal panel 06/03/24 06/04/24 Range/Units 12:51 05:56 Sodium 138 139 (137-145) mmol/L Potassium 4.0 3.7 (3.5-5.1) mmol/L Chloride 103 102 (98-107) mmol/L Carbon Dioxide 27 25.5 (22-30) mmol/L BUN 15 13.4 (7-17) mg/dL Creatinine 0.59 0.6 (0.52-1.04) mg/dL Glucose 197 H 116 H (74-99) mg/dL Calcium 9.5 8.6 L (8.4-10.2) mg/dL Total Bilirubin 1.6 H 1.0 (0.2-1.3) mg/dL AST 23 16 (14-36) U/L ALT 15 10 (4-34) U/L Alkaline Phosphatase 82 74 (38-126) U/L Total Protein 7.5 6.3 (6.3-8.2) g/dL Albumin 4.3 3.7 L (3.5-5.0) g/dL
[2024-06-04 12:05] LABS: Glucose,Whole Blood 121 mg/dL (70-110)
--- NOTE | 2024-06-04 13:24 | P.CONS ---
History of Present Illness - Reason for Consult type 2 diabetes mellitus - History of Present Illness Patient presents on 78-year-old female came in with complaints of right upper quadrant abdominal pain and epigastric abdominal pain for 4 days patient has positive Davalos sign and patient is found to have cholecystitis on the ultrasound. Patient is undergoing will go for cholecystectomy today patient is presently on Zosyn. Patient is diabetic, her oral diabetic medications are being held and patient will be on sliding scale insulin. REVIEW OF SYSTEMS: All other systems are negative except those mentioned in the HPI PHYSICAL EXAMINATION: GENERAL: The patient is alert and oriented x3, not in any acute distress. Well developed, well nourished. HEENT: Pupils are round and equally reacting to light. EOMI. No scleral icterus. No conjunctival pallor. Normocephalic, atraumatic. No pharyngeal erythema. No thyromegaly. CARDIOVASCULAR: S1 and S2 present. No murmurs, rubs, or gallops. PULMONARY: Chest is clear to auscultation, no wheezing or crackles. ABDOMEN: Soft, nontender, nondistended, normoactive bowel sounds. No palpable organomegaly. MUSCULOSKELETAL: No joint swelling or deformity. EXTREMITIES: No cyanosis, clubbing, or pedal edema. NEUROLOGICAL: Gross neurological examination did not reveal any focal deficits. SKIN: No rashes. Assessment and plan -Acute cholecystitis: Cholecystectomy today patient will be continued on antibiotics. -Leukocytosis due to assessment #1 -Type 2 diabetes mellitus hold off on oral agents and patient will be on sliding scale insulin -Hypertension patient is expected to have hypotension postsurgery depending on the blood pressure patient will be resumed on lisinopril postsurgery -Hyperlipidemia -History of bladder cancer in remission DVT prophylaxis: As per primary service Past Medical History Past Medical History: Cancer, Diabetes Mellitus, GERD/Reflux, Hypertension Additional Past Medical History / Comment(s): diverticulitis, ?bladder cancer-discovered when had bowel resection per pt.-never had any tx. for that she knows of History of Any Multi-Drug Resistant Organisms: None Reported Past Surgical History: Bowel Resection, Hysterectomy, Joint Replacement, Orthopedic Surgery Additional Past Surgical History / Comment(s): carpal tunnel surgery, pradeep knee replaced, left wrist surg., bilat cataract surgery Past Anesthesia/Blood Transfusion Reactions: Postoperative Nausea & Vomiting (PONV) Past Psychological History: No Psychological Hx Reported Smoking Status: Former smoker Past Alcohol Use History: Occasional Additional Past Alcohol Use History / Comment(s): quit smoking @age of 24, smoked for 8 yrs. Past Drug Use History: None Reported - Past Family History Father Family Medical History: Cancer Mother Family Medical History: Cancer Medications and Allergies Home Medications Medication Instructions Recorded Confirmed Type Aspirin EC [Ecotrin Low Dose] 81 mg PO DAILY 06/03/24 06/03/24 History Atorvastatin [Lipitor] 40 mg PO DAILY 06/03/24 06/03/24 History Calcium Citrate/Vitamin D3 1 tab PO DAILY 06/03/24 06/03/24 History [Citracal + D Maximum Caplet] Cetirizine HCl [Zyrtec] 10 mg PO DAILY 06/03/24 06/03/24 History Empagliflozin [Jardiance] 10 mg PO DAILY 06/03/24 06/03/24 History Glimepiride [Amaryl] 2 mg PO DAILY 06/03/24 06/03/24 History Ibuprofen [Advil] 200 mg PO DAILY 06/03/24 06/03/24 History Multivit-Min/Iron Fum/Folic AC 1 tab PO DAILY 06/03/24 06/03/24 History [One-A-Day Women's Complete Tab] Pentoxifylline [TRENtal] 400 mg PO TID 06/03/24 06/03/24 History Turmeric Root Extract [Turmeric] 500 mg PO DAILY 06/03/24 06/03/24 History lisinopriL [Zestril] 20 mg PO DAILY 06/03/24 06/03/24 History Allergies Allergy/AdvReac Type Severity Reaction Status Date / Time latex Allergy Rash/Hives Verified 06/04/24 13:10 tetanus and diphtheria Allergy Rapid Verified 06/04/24 13:10 toxoids Heart Rate [tetanus & diphtheria toxoids] cortisone AdvReac redness,swelling Verified 06/04/24 13:10 @injection site Physical Exam Vitals: Vital Signs Temp Pulse Pulse Resp BP BP BP 06/04/24 13:14 98.1 F 87 16 165/57 06/04/24 09:09 21 06/04/24 08:17 06/04/24 07:00 98.5 F 85 21 132/80 06/04/24 02:00 98.5 F 86 16 143/62 07/14/24 18:33 98.9 F 74 16 127/72 06/03/24 17:53 90 18 122/81 06/03/24 16:47 92 16 139/69 Pulse Ox 06/04/24 13:14 93 L 06/04/24 09:09 06/04/24 08:17 94 L 06/04/24 07:00 93 L 06/04/24 02:00 92 L 06/03/24 18:33 98 06/03/24 17:53 94 L 06/03/24 16:47 93 L Intake and Output 06/03/24 06/04/24 06/04/24 22:59 06:59 14:59 Intake Total 118 Balance 118 Intake: Oral 118 Other: # Voids 1 Weight 83.915 kg Results CBC & Chem 7: 06/04/24 05:56 06/04/24 05:56 Labs: Abnormal Lab Results - Last 24 Hours (Table) 06/03/24 06/03/24 06/04/24 Range/Units 12:51 20:37 05:33 WBC (4.50-10.00) X 10*3/uL Hgb (12.0-15.0) g/dL BUN/Creatinine Ratio (12.00-20.00) Ratio Glucose 197 H (74-99) mg/dL POC Glucose (mg/dL) 141 H 122 H (70-110) mg/dL Hemoglobin A1c (<=6.0) % Calcium (8.7-10.3) mg/dL Total Bilirubin 1.6 H (0.2-1.3) mg/dL Albumin (3.8-4.9) g/dL Albumin/Globulin Ratio (1.60-3.17) Ratio 06/04/24 06/04/24 06/04/24 Range/Units 05:56 05:56 05:56 WBC 10.54 H (4.50-10.00) X 10*3/uL Hgb 15.4 H (12.0-15.0) g/dL BUN/Creatinine Ratio 22.33 H (12.00-20.00) Ratio Glucose 116 H (74-99) mg/dL POC Glucose (mg/dL) (70-110) mg/dL Hemoglobin A1c 7.0 H (<=6.0) % Calcium 8.6 L (8.7-10.3) mg/dL Total Bilirubin (0.2-1.3) mg/dL Albumin 3.7 L (3.8-4.9) g/dL Albumin/Globulin Ratio 1.42 L (1.60-3.17) Ratio 06/04/24 Range/Units 12:04 WBC (4.50-10.00) X 10*3/uL Hgb (12.0-15.0) g/dL BUN/Creatinine Ratio (12.00-20.00) Ratio Glucose (74-99) mg/dL POC Glucose (mg/dL) 121 H (70-110) mg/dL Hemoglobin A1c (<=6.0) % Calcium (8.7-10.3) mg/dL Total Bilirubin (0.2-1.3) mg/dL Albumin (3.8-4.9) g/dL Albumin/Globulin Ratio (1.60-3.17) Ratio
[2024-06-04] MEDS: HEPARIN SODIUM,PORCINE 5,000 UNIT/ML 1 ML VIAL SQ STA (13:27)
[2024-06-04] MEDS: IV FLUID CONTINUATION 1,000 ML IV ONE ×2 (13:30→16:34)
[2024-06-04] MEDS: BUPIVACAINE (PF) 0.25% 30 ML VIAL SQ ONE ×3 (13:41→14:03)
[2024-06-04] MEDS ORDERED: KETOROLAC 15 MG/ML 1 ML VIAL ONE (13:47)
[2024-06-04] MEDS ORDERED: fentaNYL (PF) 50 MCG/ML 2 ML AMP ONE (13:47)
[2024-06-04] MEDS ORDERED: PHENYLEPHRINE-0.9% NACL SYG 1,000 MCG/10 ML SYRINGE ONE (13:47)
[2024-06-04] MEDS ORDERED: PROPOFOL 10 MG/ML 20 ML VIAL IV ONE (13:47)
[2024-06-04] MEDS ORDERED: SUCCINYLCHOLINE CHLORIDE 200 MG/10 ML VIAL IV ONE (13:47)
[2024-06-04] MEDS ORDERED: NEOSTIGMINE 1 MG/ML 10 ML VIAL ONE (13:47)
[2024-06-04] MEDS ORDERED: diphenhydrAMINE 50 MG/ML 1 ML VIAL ONE (13:47)
[2024-06-04] MEDS ORDERED: GLYCOPYRROLATE 0.2 MG/ML 2 ML VIAL ONE (13:47)
[2024-06-04] MEDS ORDERED: ROCURONIUM 10 MG/ML (5 ML VIAL) IV ONE (13:47)
[2024-06-04] MEDS ORDERED: traMADol 50 MG TAB PO PRN (15:10)
[2024-06-04] MEDS ORDERED: HYDROcodone/APAP 5-325MG 1 EACH TAB PO PRN (15:10)
[2024-06-04] MEDS ORDERED: METOCLOPRAMIDE 5 MG/ML 2 ML VIAL IVP PRN (15:10)
--- NOTE | 2024-06-04 15:14 | P.OP ---
Date of Procedure: 06/04/24 Procedure(s) Performed: PREOPERATIVE DIAGNOSIS: Acute cholecystitis POSTOPERATIVE DIAGNOSIS: Abdominal adhesions, acute gangrenous calculus cholecystitis PROCEDURE: Laparoscopic cholecystectomy SURGEON: Eduarda EBL: 20 cc ANESTHESIA: Gen. COMPLICATIONS: None OPERATIVE PROCEDURE: The patient was brought and placed on the operating room table in the supine position. The patient was placed under general anesthesia at that time. The abdomen was prepped and draped in the usual sterile fashion. A small horizontal incision was made in the right upper quadrant. Entrance into the peritoneal cavity occurred using an optical trocar. Full insufflation took place. The patient had a large amount of adhesions along the midline. I was able to place a infraumbilical 5 mm trocar for the camera to the right side of midline. Avoiding the adhesions there. An additional 5 mm trocar was placed lateral to our entrance trocar. A 12 mm trocar was placed in the epigastrium under direct visualization. The patient had dense adhesions between the transverse colon and omentum and the liver margin. This was lysed using both blunt dissection and LigaSure. This was also densely adhesed to the gallbladder. The gallbladder was acutely inflamed and edematous. Further dissection of the adhesions took place using LigaSure. We were now able to visualize the gallbladder well. A small opening in the gallbladder was made so that we could grasped the gallbladder. The contents were evacuated. The gallbladder was retracted superiorly and laterally. The peritoneum overlying the infundibulum was bluntly dissected. The patient's cystic duct was visualized. The junction between the cystic duct common and hepatic duct was identified. The critical view of safety was achieved after blunt dissection. The cystic duct was then divided after placement of 3 12 mm clips on the patient's side and one on the specimen side. The cystic artery was identified and clipped as well. A small vessel was seen along the gallbladder fossa and clipped as well. The gallbladder was then removed from the liver bed using el ectrocautery. The posterior wall of the infundibulum had gangrenous changes. There was no julieth perforation or abscess seen. The gallbladder was then removed from the epigastric trocar site with an Endo Catch bag. The gallbladder fossa was irrigated with saline. There was no evidence of any bleeding or biliary drainage seen. I decided to place a drain given the degree of inflammatory changes and the liver bed being so inflamed. This came out through our lateral 5 mm right upper quadrant trocar and was sutured to the skin using a 3-0 silk stitch. The fascia at the 12 millimeter site was closed using a MadhuBrayden 0 Vicryl stitch. The trochars were then removed. The skin at all 3 sites was closed using a 4-0 Monocryl stitch. Skin glue was utilized on the incision sites. At the end of this procedure the sponge and needle counts were correct. DISPOSITION: Stable to the recovery room
[2024-06-04 15:33] LABS: Glucose,Whole Blood 134 mg/dL (70-110)
[2024-06-04] MEDS: HYDROmorphone 0.5 MG/0.5 ML SYRINGE IVP PRN ×2 (15:49→16:24)
[2024-06-04 17:13] LABS: Glucose,Whole Blood 144 mg/dL (70-110)
[2024-06-04] MEDS: ASPIRIN 81 MG PO SCH (18:09)
[2024-06-04 20:11] LABS: Glucose,Whole Blood 145 mg/dL (70-110)
[2024-06-04 22:07] LABS: Glucose,Whole Blood 134 mg/dL (70-110)
[2024-06-05 06:16] LABS: Glucose,Whole Blood 113 mg/dL (70-110)
[2024-06-05 08:16] LABS: Basophils % (A) 0 %; Eosinophils # (A) 0.1 k/uL (0-0.7); Eosinophils % (A) 1 %; HGB 15.1 gm/dL (11.4-16.0); Lymphocytes % (A) 12 %; MCH 31.7 pg (25.0-35.0); MCHC 33.5 g/dL (31.0-37.0); MCV 94.4 fL (80.0-100.0); Monocytes # (A) 0.5 k/uL (0-1.0); Monocytes % (A) 5 %; Neutrophils # (A) 7.2 k/uL (1.3-7.7); Neutrophils % (A) 80 %; Platelet Count 154 k/uL (150-450); RBC 4.77 m/uL (3.80-5.40); RDW 13.8 % (11.5-15.5); WBC 9.1 k/uL (3.8-10.6)
[2024-06-05] MEDS: ACETAMINOPHEN TAB 325 MG TAB PO PRN (08:19)
[2024-06-05] MEDS: HYDROmorphone 0.5 MG/0.5 ML SYRINGE IVP PRN (08:20)
[2024-06-05 08:59] LABS: ALT 21 U/L (4-34); AST 45 U/L (14-36); African American GFR (CKD) >90 (>60 ml/min/1.73 sqM); Albumin 3.5 g/dL (3.5-5.0); Albumin/Globulin Ratio 1.2; Alkaline Phosphatase 74 U/L (38-126); Anion Gap 9 mmol/L; Blood Urea Nitrogen 14 mg/dL (7-17); Calcium 8.4 mg/dL (8.4-10.2); Carbon Dioxide 21 mmol/L (22-30); Chloride 109 mmol/L (98-107); Globulin 2.9 g/dL; Glucose 113 mg/dL (74-99); Non-African American GFR(CKD) >90 (>60 ml/min/1.73 sqM); Potassium 4.1 mmol/L (3.5-5.1); Sodium 139 mmol/L (137-145); Total Bilirubin 1.2 mg/dL (0.2-1.3); Total Protein 6.4 g/dL (6.3-8.2)
[2024-06-05 12:14] LABS: Glucose,Whole Blood 146 mg/dL (70-110)
--- NOTE | 2024-06-05 15:51 | P.PN ---
Subjective Progress Note Date: 06/05/24 CHIEF COMPLAINT: Acute gangrenous cholecystitis HISTORY OF PRESENT ILLNESS: Patient is postop day #1 status post laparoscopic cholecystectomy. Patient reports her pain is controlled. Denies any nausea or vomiting. She did have a temp of 101.1 this morning and was mildly tachycardic. Patient reports she is hungry she tolerated clear liquids. Patient does report a mild cough. Denies any shortness of breath. WBC is 9.1 Hgb 15 platelets 154 total bilirubin 1.2 AST mildly elevated at 45 ALT 21 alk phos 74 blood culture results pending PHYSICAL EXAM: VITAL SIGNS: Reviewed. GENERAL: Well-developed in no acute distress. ABDOMEN: Soft. Nondistended. Mild tenderness at incision sites. Incision sites clean dry and intact. DEMIAN drain 20mL serosanguineous output NEUROLOGIC: Alert and oriented. Cranial nerves II through XII grossly intact. ASSESSMENT: 1. Acute gangrenous calculus cholecystitis and abdominal adhesions status post laparoscopic cholecystectomy 2. Fever likely due to atelectasis PLAN: -Continue antibiotics -Continue pain management -Encourage patient to increase activity level -encourage patient to use incentive spirometer -Continue to monitor fevers. Continue Tylenol as needed. -DVT prophylaxis subcu heparin Physician Per Diem Physical Therapist Assistant note has been reviewed by physician. Signing provider agrees with the documented findings, assessment, and plan of care. I have personally seen and examined the patient, reviewed the DRIVER/REFUSE COLLECTOR /PAs history, exam and MDM and agree with the assessment and plan as written. Based on total visit time, I have performed more than 50% of the visit. As above: Patient says she feels much better than she did prior to surgery. She is afebrile. White blood cell count noted. DEMIAN drain serosanguineous. Continue antibiotics. Advance diet. Probable discharge tomorrow. Objective - Vital Signs Vital signs: Vital Signs Temp 98.8 F 06/05/24 14:46 Pulse 78 06/05/24 14:46 Resp 16 06/05/24 14:46 BP 130/72 06/05/24 14:46 Pulse Ox 87 L 06/05/24 14:46 FiO2 Intake & Output 06/04/24 06/05/24 06/05/24 18:59 06:59 18:59 Intake Total 1222 118 Output Total 50 20 20 Balance 1172 -20 98 Weight 83.915 kg Intake: IV 1000 Oral 222 118 Output: Drainage 30 20 20 Right Abdomen 30 20 20 Estimated Blood Loss 20 Other: Voiding Method Toilet # Voids 1 2 - Labs CBC & Chem 7: 06/05/24 07:18 06/05/24 07:18 Labs: Abnormal Lab Results - Last 24 Hours (Table) 06/04/24 06/04/24 06/04/24 Range/Units 17:04 20:08 22:03 Chloride (98-107) mmol/L Carbon Dioxide (22-30) mmol/L Glucose (74-99) mg/dL POC Glucose (mg/dL) 144 H 145 H 134 H (70-110) mg/dL AST (14-36) U/L 06/05/24 06/05/24 06/05/24 Range/Units 06:13 07:18 12:13 Chloride 109 H (98-107) mmol/L Carbon Dioxide 21 L (22-30) mmol/L Glucose 113 H (74-99) mg/dL POC Glucose (mg/dL) 113 H 146 H (70-110) mg/dL AST 45 H (14-36) U/L Microbiology - Last 24 Hours (Table) 06/03/24 17:46 Blood Culture - Preliminary Blood 06/03/24 17:18 Blood Culture - Preliminary Blood
[2024-06-05 17:31] LABS: Glucose,Whole Blood 156 mg/dL (70-110)
[2024-06-05 21:15] LABS: Glucose,Whole Blood 145 mg/dL (70-110)
--- NOTE | 2024-06-05 21:41 | P.PN ---
Subjective Progress Note Date: 06/05/24 Patient presents on 78-year-old female came in with complaints of right upper quadrant abdominal pain and epigastric abdominal pain for 4 days patient has positive Davalos sign and patient is found to have cholecystitis on the ultrasound. Patient is undergoing will go for cholecystectomy today patient is presently on Zosyn. Patient is diabetic, her oral diabetic medications are being held and patient will be on sliding scale insulin. 06/05/2024 Patient is evaluated today in follow up. Sitting up in the chair and reporting less abdominal pain. She is postoperative day #1 laproscopic cholcystectomy for gangrenous lilli. She has had fever today 100. Encouraged to use the incentive spirometer. Continues on IV antibiotics. Review of Systems Constitutional: Denied any fatigue denied any fever. Cardio vascular: denied any chest pain, palpitations Gastrointestinal: denied any nausea, vomiting, diarrhea Pulmonary: Denied any shortness of breath cough Neurologic denied any new focal deficits All inpatient medications were reviewed and appropriate changes in these medications as dictated in the interval history and assessment and plan. PHYSICAL EXAMINATION: GENERAL: The patient is alert and oriented x3, not in any acute distress. Well developed, well nourished. HEENT: Pupils are round and equally reacting to light. EOMI. No scleral icterus. No conjunctival pallor. Normocephalic, atraumatic. No pharyngeal erythema. No thyromegaly. CARDIOVASCULAR: S1 and S2 present. No murmurs, rubs, or gallops. PULMONARY: Chest is clear to auscultation, no wheezing or crackles. ABDOMEN: Soft, tender, nondistended, normoactive bowel sounds. No palpable organomegaly. Post surgical MUSCULOSKELETAL: No joint swelling or deformity. EXTREMITIES: No cyanosis, clubbing, or pedal edema. NEUROLOGICAL: Gross neurological examination did not reveal any focal deficits. SKIN: No rashes. Assessment and plan -Acute cholecystitis: laproscopic cholecystectomy POD #2. -Leukocytosis due to assessment #1 -Type 2 diabetes mellitus hold off on oral agents and patient will be on sliding scale insulin -Hypertension patient is expected to have hypotension postsurgery depending on the blood pressure patient will be resumed on lisinopril postsurgery -Hyperlipidemia -History of bladder cancer in remission DVT prophylaxis: As per primary service The impression and plan of care has been dictated by Jennie Gottlieb, Nurse Practitioner as directed. Dr. Marielos MD I have performed a history and physical examination and medical decision making of this patient, discussed the same with the dictator, and agree with the dictators assessment and plan as written, documented as a scribe. Based on total visit time, I have performed more than 50% of this visit. Objective - Vital Signs Vital signs: Vital Signs Temp 98.5 F 06/05/24 20:00 Pulse 83 06/05/24 20:00 Resp 18 06/05/24 20:00 BP 167/93 06/05/24 20:00 Pulse Ox 93 L 06/05/24 20:00 FiO2 Intake & Output 06/05/24 06/05/24 06/06/24 06:59 18:59 06:59 Intake Total 118 Output Total 20 40 Balance -20 78 Intake: Oral 118 Output: Drainage 20 40 Right Abdomen 20 40 Other: Voiding Method Toilet # Voids 1 2 - Labs CBC & Chem 7: 06/05/24 07:18 06/05/24 07:18 Labs: Abnormal Lab Results - Last 24 Hours (Table) 06/04/24 06/05/24 06/05/24 Range/Units 22:03 06:13 07:18 Chloride 109 H (98-107) mmol/L Carbon Dioxide 21 L (22-30) mmol/L Glucose 113 H (74-99) mg/dL POC Glucose (mg/dL) 134 H 113 H (70-110) mg/dL AST 45 H (14-36) U/L 06/05/24 06/05/24 06/05/24 Range/Units 12:13 17:29 21:14 Chloride (98-107) mmol/L Carbon Dioxide (22-30) mmol/L Glucose (74-99) mg/dL POC Glucose (mg/dL) 146 H 156 H 145 H (70-110) mg/dL AST (14-36) U/L Microbiology - Last 24 Hours (Table) 06/03/24 17:46 Blood Culture - Preliminary Blood 06/03/24 17:18 Blood Culture - Preliminary Blood Assessment and Plan Time with Patient: Less than 30
[2024-06-05] MEDS: HEPARIN SODIUM,PORCINE 5,000 UNIT/ML 1 ML VIAL SQ SCH (21:43)
[2024-06-05] MEDS: ASPIRIN 81 MG PO SCH (21:43)
[2024-06-05 22:15] LABS: Appearance,Urine Clear (Clear); Bacteria,Urine Rare /hpf; Bilirubin,Urine Negative (Negative); Blood,Urine Negative (Negative); Color,Urine Colorless; Glucose,Urine (UA) 4+ (Negative); Ketones,Urine 1+ (Negative); Leukocyte Esterase,Urine Small (Negative); Nitrite,Urine Negative (Negative); PH, Urine 5.5 (5.0-8.0); Protein,Urine Trace (Negative); RBC,Urine 1 /hpf (0-5); Specific Gravity,Urine 1.031 (1.001-1.035); Squamous Epithelial Cell,Urine 4 /hpf (0-4); Urobilinogen,Urine <2.0 mg/dL (<2.0); WBC,Urine 5 /hpf (0-5)
[2024-06-06 06:17] LABS: Glucose,Whole Blood 118 mg/dL (70-110)
[2024-06-06 10:58] LABS: Basophils # (A) 0.03 X 10*3/uL (0.00-0.10); Basophils % (A) 0.3 %; Eosinophils # (A) 0.34 X 10*3/uL (0.04-0.35); Eosinophils % (A) 3.9 %; HCT 44.2 % (37.2-46.3); Lymphocytes # (A) 1.29 X 10*3/uL (0.90-5.00); MCH 30.5 pg (27.0-32.0); MCHC 33.9 g/dL (32.0-37.0); MCV 89.8 FL (80.0-97.0); Monocytes # (A) 0.59 X 10*3/uL (0.20-1.00); Monocytes % (A) 6.9 %; NRBC Per 100 WBC 0 X 10*3/uL (0.00-0.01); Neutrophils % (A) 73.2 %; Platelet Count 172 X 10*3/uL (140-440); RBC 4.92 X 10*6/uL (4.10-5.20); RDW 13.1 % (11.5-14.5); WBC 8.61 X 10*3/uL (4.50-10.00)
[2024-06-06] MEDS: lisinopriL 20 MG TAB PO SCH (11:27)
[2024-06-06] MEDS: DOCUSATE 100 MG CAP PO SCH (11:27)
[2024-06-06 11:42] LABS: ALT 21 U/L (8-44); AST 29 U/L (13-35); Albumin 3.7 g/dL (3.8-4.9); Albumin/Globulin Ratio 1.42 Ratio (1.60-3.17); Alkaline Phosphatase 76 U/L (41-126); Blood Urea Nitrogen 7.4 mg/dL (9.0-27.0); Calcium 8.3 mg/dL (8.7-10.3); Carbon Dioxide 23.7 mmol/L (21.6-31.8); Chloride 103 mmol/L (96-109); Globulin 2.6 g/dL (1.6-3.3); Glucose 127 mg/dL (70-110); Potassium 3.3 mmol/L (3.5-5.5); Sodium 139 mmol/L (135-145); Total Bilirubin 0.8 mg/dL (0.3-1.2); Total Protein 6.3 g/dL (6.2-8.2)
[2024-06-06 11:48] LABS: Glucose,Whole Blood 152 mg/dL (70-110)
[2024-06-06] MEDS: POTASSIUM CHLORIDE ER 20 MEQ TAB.ER PO STA (13:35)
--- NOTE | 2024-06-06 13:52 | P.DS ---
Providers Date of admission: 06/03/24 16:23 Expected date of discharge: 06/06/24 Attending physician: Vicente Lerner Consults: 06/03/24 16:48 Consult Physician Routine Consulting Provider: Skylar Valencia Consult Reason/Comments: Medical clearance Do you want consulting provider notified?: Yes Primary care physician: Yvon Vance Hospital Course: Discharge diagnosis 1. Acute gangrenous calculus cholecystitis and abdominal adhesions status post laparoscopic cholecystectomy 2. Atelectasis Hospital course This is a 78-year-old female who presented with right upper quadrant and epigastric abdominal pain x 4 days after eating pizza. Gallbladder ultrasound had reported gallbladder hydrops and small gallstones. Patient is status post laparoscopic cholecystectomy. Patient tolerated surgery well. Her pain is controlled. She did have a bowel movement. She has been up and ambulating. She is tolerating diet. She is afebrile. She is stable for discharge. Physician Child Welfare Manager note has been reviewed by physician. Signing provider agrees with the documented findings, assessment, and plan of care. Patient Condition at Discharge: Stable Plan - Discharge Summary New Discharge Prescriptions: New HYDROcodone/APAP 5-325MG [Cohagen 5-325] 1 tab PO Q6HR PRN 3 Days #12 tab PRN Reason: Pain Continue Cetirizine HCl [Zyrtec] 10 mg PO DAILY Aspirin EC [Ecotrin Low Dose] 81 mg PO DAILY lisinopriL [Zestril] 20 mg PO DAILY Empagliflozin [Jardiance] 10 mg PO DAILY Turmeric Root Extract [Turmeric] 500 mg PO DAILY Ibuprofen [Advil] 200 mg PO DAILY Calcium Citrate/Vitamin D3 [Citracal + D Maximum Caplet] 1 tab PO DAILY Pentoxifylline [TRENtal] 400 mg PO TID Multivit-Min/Iron Fum/Folic AC [One-A-Day Women's Complete Tab] 1 tab PO DAILY Glimepiride [Amaryl] 2 mg PO DAILY Atorvastatin [Lipitor] 40 mg PO DAILY Discharge Medication List Aspirin EC [Ecotrin Low Dose] 81 mg PO DAILY 06/03/24 [History] Atorvastatin [Lipitor] 40 mg PO DAILY 06/03/24 [History] Calcium Citrate/Vitamin D3 [Citracal + D Maximum Caplet] 1 tab PO DAILY 06/03/24 [History] Cetirizine HCl [Zyrtec] 10 mg PO DAILY 06/03/24 [History] Empagliflozin [Jardiance] 10 mg PO DAILY 06/03/24 [History] Glimepiride [Amaryl] 2 mg PO DAILY 06/03/24 [History] Ibuprofen [Advil] 200 mg PO DAILY 06/03/24 [History] Multivit-Min/Iron Fum/Folic AC [One-A-Day Women's Complete Tab] 1 tab PO DAILY 06/03/24 [History] Pentoxifylline [TRENtal] 400 mg PO TID 06/03/24 [History] Turmeric Root Extract [Turmeric] 500 mg PO DAILY 06/03/24 [History] lisinopriL [Zestril] 20 mg PO DAILY 06/03/24 [History] HYDROcodone/APAP 5-325MG [Cohagen 5-325] 1 tab PO Q6HR PRN 3 Days #12 tab 06/06/24 [Rx] Follow up Appointment(s)/Referral(s): Yvon Vance DO [Primary Care Provider] - 1-2 days Vicente Lerner MD [Medical Doctor] - 1 Week Activity/Diet/Wound Care/Special Instructions: No driving while taking Cohagen No lifting over 10 pounds You may shower. No soaking or tub baths for 2 weeks Very light activity until you are reevaluated at your follow up appointment with your surgeon Discharge Disposition: HOME SELF-CARE
--- NOTE | 2024-06-06 15:13 | P.PN ---
Subjective Progress Note Date: 06/06/24 Patient presents on 78-year-old female came in with complaints of right upper quadrant abdominal pain and epigastric abdominal pain for 4 days patient has positive Davalos sign and patient is found to have cholecystitis on the ultrasound. Patient is undergoing will go for cholecystectomy today patient is presently on Zosyn. Patient is diabetic, her oral diabetic medications are being held and patient will be on sliding scale insulin. 06/05/2024 Patient is evaluated today in follow up. Sitting up in the chair and reporting less abdominal pain. She is postoperative day #1 laproscopic cholcystectomy for gangrenous lilli. She has had fever today 100. Encouraged to use the incentive spirometer. Continues on IV antibiotics. 06/06/2024 Patient is evaluated today in follow-up on the medical floor. Patient is postoperative day #2 laparoscopic cholecystectomy for gangrenous Liane. Patient has been afebrile now in the last 24 hours. She is using her incentive spirometer. Patient is passing gas and having very small bowel movement. She did tolerate diet today. She has been cleared medically for discharge home by general surgery. Review of Systems Constitutional: Denied any fatigue denied any fever. Cardio vascular: denied any chest pain, palpitations Gastrointestinal: denied any nausea, vomiting, diarrhea Pulmonary: Denied any shortness of breath cough Neurologic denied any new focal deficits All inpatient medications were reviewed and appropriate changes in these medications as dictated in the interval history and assessment and plan. PHYSICAL EXAMINATION: GENERAL: The patient is alert and oriented x3, not in any acute distress. Well developed, well nourished. HEENT: Pupils are round and equally reacting to light. EOMI. No scleral icterus. No conjunctival pallor. Normocephalic, atraumatic. No pharyngeal erythema. No thyromegaly. CARDIOVASCULAR: S1 and S2 present. No murmurs, rubs, or gallops. PULMONARY: Chest is clear to auscultation, no wheezing or crackles. ABDOMEN: Soft, tender, nondistended, normoactive bowel sounds. No palpable organomegaly. Post surgical MUSCULOSKELETAL: No joint swelling or deformity. EXTREMITIES: No cyanosis, clubbing, or pedal edema. NEUROLOGICAL: Gross neurological examination did not reveal any focal deficits. SKIN: No rashes. Assessment and plan -Acute cholecystitis: laproscopic cholecystectomy POD #2. -Leukocytosis due to assessment #1 -Type 2 diabetes mellitus hold off on oral agents and patient will be on sliding scale insulin -Hypertension patient is expected to have hypotension postsurgery depending on the blood pressure patient will be resumed on lisinopril postsurgery -Hyperlipidemia -History of bladder cancer in remission DVT prophylaxis: As per primary service The impression and plan of care has been dictated by Jennie Gottlieb Nurse Practitioner as directed. Dr. Marielos MD I have performed a history and physical examination and medical decision making of this patient, discussed the same with the dictator, and agree with the dictators assessment and plan as written, documented as a scribe. Based on total visit time, I have performed more than 50% of this visit. Objective - Vital Signs Vital signs: Vital Signs Temp 96.7 F L 06/06/24 07:00 Pulse 88 06/06/24 11:26 Resp 18 06/06/24 13:51 BP 169/81 06/06/24 11:26 Pulse Ox 92 L 06/06/24 07:00 FiO2 Intake & Output 06/05/24 06/06/24 06/06/24 18:59 06:59 18:59 Intake Total 118 358 236 Output Total 40 15 25 Balance 78 343 211 Intake: Oral 118 358 236 Output: Drainage 40 15 25 Right Abdomen 40 15 25 Other: Voiding Method Toilet Toilet Toilet # Voids 2 3 1 # Bowel Movements 1 - Labs CBC & Chem 7: 06/06/24 06:31 06/06/24 06:31 Labs: Abnormal Lab Results - Last 24 Hours (Table) 06/05/24 06/05/24 06/05/24 Range/Units 17:29 21:14 21:44 Immature Gran # (0.00-0.04) X 10*3/uL Potassium (3.5-5.5) mmol/L Anion Gap (4.00-12.00) mmol/L BUN (9.0-27.0) mg/dL Creatinine (0.6-1.5) mg/dL Glucose (70-110) mg/dL POC Glucose (mg/dL) 156 H 145 H (70-110) mg/dL Calcium (8.7-10.3) mg/dL Albumin (3.8-4.9) g/dL Albumin/Globulin Ratio (1.60-3.17) Ratio Urine Protein Trace H (Negative) Urine Glucose (UA) 4+ H (Negative) Urine Ketones 1+ H (Negative) Ur Leukocyte Esterase Small H (Negative) Urine Bacteria Rare H (None) /hpf 06/06/24 06/06/24 06/06/24 Range/Units 06:16 06:31 06:31 Immature Gran # 0.06 H (0.00-0.04) X 10*3/uL Potassium 3.3 L (3.5-5.5) mmol/L Anion Gap 12.30 H (4.00-12.00) mmol/L BUN 7.4 L (9.0-27.0) mg/dL Creatinine 0.5 L (0.6-1.5) mg/dL Glucose 127 H (70-110) mg/dL POC Glucose (mg/dL) 118 H (70-110) mg/dL Calcium 8.3 L (8.7-10.3) mg/dL Albumin 3.7 L (3.8-4.9) g/dL Albumin/Globulin Ratio 1.42 L (1.60-3.17) Ratio Urine Protein (Negative) Urine Glucose (UA) (Negative) Urine Ketones (Negative) Ur Leukocyte Esterase (Negative) Urine Bacteria (None) /hpf 06/06/24 Range/Units 11:47 Immature Gran # (0.00-0.04) X 10*3/uL Potassium (3.5-5.5) mmol/L Anion Gap (4.00-12.00) mmol/L BUN (9.0-27.0) mg/dL Creatinine (0.6-1.5) mg/dL Glucose (70-110) mg/dL POC Glucose (mg/dL) 152 H (70-110) mg/dL Calcium (8.7-10.3) mg/dL Albumin (3.8-4.9) g/dL Albumin/Globulin Ratio (1.60-3.17) Ratio Urine Protein (Negative) Urine Glucose (UA) (Negative) Urine Ketones (Negative) Ur Leukocyte Esterase (Negative) Urine Bacteria (None) /hpf Microbiology - Last 24 Hours (Table) 06/03/24 17:46 Blood Culture - Preliminary Blood 06/03/24 17:18 Blood Culture - Preliminary Blood Assessment and Plan Time with Patient: Less than 30
[2024-06-06 15:53] VITALS: BP 160/72; PULSE 84; RESP 16; TEMP 97.5
== END 2024-06-06 16:35 | disposition home or self-care (01) ==
LOC: EC 12:31 → 6NMEDSUR 16:23
PROVIDERS: ADMIT Surgery; ATTEND Surgery
DX: K80.00 Calculus of gallbladder with acute cholecystitis without obstruction (principal); K82.A1 Gangrene of gallbladder in cholecystitis; K66.0 Peritoneal adhesions (postprocedural) (postinfection); D72.829 Elevated white blood cell count, unspecified; R50.9 Fever, unspecified; J98.11 Atelectasis; E11.9 Type 2 diabetes mellitus without complications; K21.9 Gastro-esophageal reflux disease without esophagitis; E78.5 Hyperlipidemia, unspecified; I10 Essential (primary) hypertension; Z85.51 Personal history of malignant neoplasm of bladder; Z87.891 Personal history of nicotine dependence; Z90.49 Acquired absence of other specified parts of digestive tract; Z79.82 Long term (current) use of aspirin; Z79.84 Long term (current) use of oral hypoglycemic drugs; Z79.899 Other long term (current) drug therapy; Z91.040 Latex allergy status
CPT/HCPCS: 96376 ×4; 96361; 96365; 96366 ×4; 96367; 96372 ×2; 96375; 99285; 36415; 94760 ×2; 93005; 88304; 83880; 80053 ×4; 83690; 83735 ×2; 84100; 84484; 85025 ×4; 85610; 85730; 81001; 87040; 83036; 71046; 76705; 47562; G0378 ×4; J2543 ×3; J1644 ×3; J2405 ×3; J1170 ×5; J0295; J0665; J2470

== ENCOUNTER → 2024-10-15 | Outpatient (CLI) | payer MEDICARE ==
[2024-10-15 12:53] LABS: Appearance,Urine Clear (Clear); Bilirubin,Urine Negative (Negative); Blood,Urine Negative (Negative); Color,Urine Colorless; Glucose,Urine (UA) 4+ (Negative); Ketones,Urine Negative (Negative); Leukocyte Esterase,Urine Small (Negative); Mucus,Urine Rare /hpf; Nitrite,Urine Negative (Negative); Protein,Urine Trace (Negative); RBC,Urine 3 /hpf (0-5); Specific Gravity,Urine 1.033 (1.001-1.035); Squamous Epithelial Cell,Urine 2 /hpf (0-4); Urobilinogen,Urine <2.0 mg/dL (<2.0); WBC,Urine 4 /hpf (0-5)
[2024-10-15 16:11] LABS: Basophils # (A) 0.04 X 10*3/uL (0.00-0.10); Basophils % (A) 0.6 %; Eosinophils % (A) 4.2 %; HCT 45.3 % (37.2-46.3); HGB 15.1 g/dL (12.0-15.0); Lymphocytes # (A) 2.37 X 10*3/uL (0.90-5.00); Lymphocytes % (A) 33.4 %; MCH 30.8 pg (27.0-32.0); MCHC 33.3 g/dL (32.0-37.0); MCV 92.3 FL (80.0-97.0); Mean Platelet Volume 11.6 FL (9.5-12.2); Monocytes # (A) 0.52 X 10*3/uL (0.20-1.00); Monocytes % (A) 7.3 %; NRBC Per 100 WBC 0 X 10*3/uL (0.00-0.01); Neutrophils # (A) 3.84 X 10*3/uL (1.80-7.70); Neutrophils % (A) 54.1 %; Platelet Count 172 X 10*3/uL (140-440); RBC 4.91 X 10*6/uL (4.10-5.20); RDW 13.5 % (11.5-14.5)
[2024-10-15 16:24] LABS: BUN/Creat Ratio 21.67 Ratio (12.00-20.00); Calcium 9.7 mg/dL (8.7-10.3); Carbon Dioxide 26.4 mmol/L (21.6-31.8); Chloride 106 mmol/L (96-109); Glucose 156 mg/dL (70-110); Potassium 4.3 mmol/L (3.5-5.5); Sodium 144 mmol/L (135-145)
== END | disposition home or self-care (01) ==
LOC: LABWHC1 11:20
PROVIDERS: ATTEND Urology
DX: N39.41 Urge incontinence (principal)
CPT/HCPCS: 36415; 80048; 81001; 85025; 87086

== ENCOUNTER 2024-10-26 20:07 | Emergency (ER) | payer MEDICARE ==
[2024-10-26 20:24] VITALS: TEMP 98.4
--- NOTE | 2024-10-26 20:49 | ED ---
General Adult HPI - General Chief complaint: Recheck/Abnormal Lab/Rx Stated complaint: Post Surgery,Bladder Prob Issues Time Seen by Provider: 10/26/24 20:32 Source: patient, RN notes reviewed, old records reviewed Mode of arrival: ambulatory Limitations: no limitations - History of Present Illness Initial comments: 78-year-old female with bleeding from76 the left buttock after she had a bladder stimulator placed on October [address] Rothman. Patient denies blood thinners. She states that she had soaked her underwear prior to arrival and a neighbor had helped her with the dressing change patient was unable to visualize the bleeding herself. - Related Data Home Medications Medication Instructions Recorded Confirmed Aspirin EC [Ecotrin Low Dose] 81 mg PO DAILY 06/03/24 06/03/24 Atorvastatin [Lipitor] 40 mg PO DAILY 06/03/24 06/03/24 Calcium Citrate/Vitamin D3 1 tab PO DAILY 06/03/24 06/03/24 [Citracal + D Maximum Caplet] Cetirizine HCl [Zyrtec] 10 mg PO DAILY 06/03/24 06/03/24 Empagliflozin [Jardiance] 10 mg PO DAILY 06/03/24 06/03/24 Glimepiride [Amaryl] 2 mg PO DAILY 06/03/24 06/03/24 Ibuprofen [Advil] 200 mg PO DAILY 06/03/24 06/03/24 Multivit-Min/Iron Fum/Folic AC 1 tab PO DAILY 06/03/24 06/03/24 [One-A-Day Women's Complete Tab] Pentoxifylline [TRENtal] 400 mg PO TID 06/03/24 06/03/24 Turmeric Root Extract [Turmeric] 500 mg PO DAILY 06/03/24 06/03/24 lisinopriL [Zestril] 20 mg PO DAILY 06/03/24 06/03/24 Previous Rx's Medication Instructions Recorded HYDROcodone/APAP 5-325MG [[place] 1 tab PO Q6HR PRN 3 Days #12 tab 06/06/24 5-325] Allergies Allergy/AdvReac Type Severity Reaction Status Date / Time latex Allergy Rash/Hives Verified 10/26/24 20:20 tetanus and diphtheria Allergy Rapid Verified 10/26/24 20:20 toxoids Heart Rate [tetanus & diphtheria toxoids] cortisone AdvReac redness,swelling Verified 10/26/24 20:20 @injection site Review of Systems ROS Statement: Those systems with pertinent positive or pertinent negative responses have been documented in the HPI. ROS Other: All systems not noted in ROS Statement are negative. Past Medical History Past Medical History: Cancer, Diabetes Mellitus, GERD/Reflux, Hyperlipidemia, Hypertension Additional Past Medical History / Comment(s): recent diarrhea for few days, diverticulitis, ?bladder cancer-discovered when had bowel resection per pt.- never had any tx. for that she knows of History of Any Multi-Drug Resistant Organisms: None Reported Past Surgical History: Bowel Resection, Cholecystectomy, Hysterectomy, Joint Replacement, Orthopedic Surgery Additional Past Surgical History / Comment(s): carpal tunnel surgery, pradeep knee replaced, left wrist surg. Past Anesthesia/Blood Transfusion Reactions: Postoperative Nausea & Vomiting (PONV) Past Psychological History: No Psychological Hx Reported Smoking Status: Never smoker Past Alcohol Use History: Occasional Past Drug Use History: None Reported - Past Family History Father Family Medical History: Cancer Mother Family Medical History: Cancer General Exam Limitations: no limitations General appearance: alert, in no apparent distress Head exam: Present: atraumatic, normocephalic Eye exam: Present: normal appearance, PERRL ENT exam: Present: normal exam Neck exam: Present: normal inspection. Absent: tenderness, meningismus Respiratory exam: Present: normal lung sounds bilaterally. Absent: respiratory distress, wheezes Cardiovascular Exam: Present: regular rate, normal rhythm GI/Abdominal exam: Present: soft. Absent: distended, tenderness, guarding, rebound Rectal exam: Present: other (Left upper gluteal bandage has minimal amount of bleeding there is no brisk bleeding. There is no palpable hematoma.) Extremities exam: Present: normal inspection Neurological exam: Present: alert, oriented X3 Psychiatric exam: Present: normal affect, normal mood Course Vital Signs 10/26/24 20:21 Temperature 98.4 F Pulse Rate 83 Respiratory 16 Rate Blood Pressure 192/83 O2 Sat by Pulse 97 Oximetry Medical Decision Making - Medical Decision Making Was pt. sent in by a medical professional or institution (, PA, AGRICULTURAL EQUIPMENT TEST ENGINEER, urgent care, hospital, or fdc...) When possible be specific @ -No Did you speak to anyone other than the patient for history (EMS, parent, family, police, friend...)? What history was obtained from this source @ -No Did you review nursing and triage notes (agree or disagree)? Why? @ -I reviewed and agree with nursing and triage notes Were old charts reviewed (outside hosp., previous admission, EMS record, old EKG, old radiological studies, urgent care reports/EKG's, fdc records)? Report findings @ -No old charts were reviewed Differential Diagnosis: Hematoma, surgical site bleeding EKG interpreted by me (3pts min.). @ -As above X-rays interpreted by me (1pt min.). @ -None done CT interpreted by me (1pt min.). @ -None done U/S interpreted by me (1pt. min.). @ -None done What testing was considered but not performed or refused? (CT, X-rays, U/S, labs)? Why? @ -None What meds were considered but not given or refused? Why? @ -None Did you discuss the management of the patient with other professionals (professionals i.e. , PA, AGRICULTURAL EQUIPMENT TEST ENGINEER, lab, RT, psych nurse, psychosocial rehabilitation counselor, cd mixer helper, teacher, correctional officer captain, transplant case manager)? Give summary @ -Case discussed with Dr. Kike vazquez for urology. Okay with return parameters and close outpatient follow-up. Was smoking cessation discussed for >3mins.? @ -No Was critical care preformed (if so, how long)? @ -No Were there social determinants of health that impacted care today? How? (Homelessness, low income, unemployed, alcoholism, drug addiction, transportation, low edu. Level, literacy, decrease access to med. care, longterm, rehab)? @ -No Was there de-escalation of care discussed even if they declined (Discuss DNR or withdrawal of care, Hospice)? DNR status @ -No What co-morbidities impacted this encounter? (DM, HTN, Smoking, COPD, CAD, Cancer, CVA, ARF, Chemo, Hep., AIDS, mental health diagnosis, sleep apnea, morbid obesity)? @ -None Was patient admitted / discharged? Hospital course, mention meds given and route, prescriptions, significant lab abnormalities, going to OR and other pertinent info. @ --year-old female with bleeding from78 bladder stimulator insertion site. There is minimal blood within the Tegaderm. There is no brisk bleeding. No hematoma. Patient reassured and will follow-up with urology. Return parameters discussed. Undiagnosed new problem with uncertain prognosis? @ -No Drug Therapy requiring intensive monitoring for toxicity (Heparin, Nitro, Insulin, Cardizem)? @ -No Were any procedures done? @ -No Diagnosis/symptom? @ -Surgical site bleeding Acute, or Chronic, or Acute on Chronic? @ -Acute Uncomplicated (without systemic symptoms) or Complicated (systemic symptoms)? @ -Default Side effects of treatment? @ -No Exacerbation, Progression, or Severe Exacerbation? @ -No Poses a threat to life or bodily function? How? (Chest pain, [place], [place], pneumonia, PE, COPD, DKA, ARF, appy, cholecystitis, CVA, Diverticulitis, Homicidal, Suicidal, threat to staff... and all critical care pts) @ -No Disposition Clinical Impression: Bleeding at insertion site Disposition: HOME SELF-CARE Condition: Fair Additional Instructions: Please monitor for further bleeding and follow-up with your urologist. Is patient prescribed a controlled substance at d/c from ED?: No Referrals: Tyler Alfredo MD [Primary Care Provider] - 1-2 days Jaylen Rothman MD [STAFF PHYSICIAN] - 1-2 days Time of Disposition: 20:48
[2024-10-26 21:14] VITALS: BP 165/80; PULSE 75; RESP 18
== END 2024-10-26 21:16 | disposition home or self-care (01) ==
LOC: EC 20:07
DX: K62.5 Hemorrhage of anus and rectum (principal); Z91.040 Latex allergy status; Z88.8 Allergy status to other drugs, medicaments and biological substances
CPT/HCPCS: 99283

== ENCOUNTER → 2025-05-23 | Outpatient (CLI) | payer MEDICARE ==
--- NOTE | 2025-05-23 11:43 | MM ---
Reason for Exam: Screening (asymptomatic). Last mammogram was performed 1 year(s) and 4 month(s) ago. Patient History: Menarche at age 14. First Full-Term at age 23. Left ovary removed at age 62. Hysterectomy at age 62. Postmenopausal. Risk Values: Cornelia 5 year model risk: 1.0%. NCI Lifetime model risk: 1.9%. Prior Study Comparison: 07/05/2019 Bilateral Screening Mammogram, [facility]. 11/26/2021 Bilateral Screening Mammogram, [facility]. 02/03/2024 Bilateral MG 3D screening mammo w/cad, [facility]. Tissue Density: There are scattered areas of fibroglandular density. Findings: Analyzed By CAD. Faint benign vascular calcifications posterior left upper outer quadrant. Subtle low density chronic nodularity on the left. There is no suspicious group of microcalcifications or new suspicious mass in either breast. Overall Assessment: Benign, BI-RAD 2 Management: Screening Mammogram of both breasts in 1 year. Patient should continue monthly self-breast exams. A clinical breast exam by your physician is recommended on an annual basis. This exam should not preclude additional follow-up of suspicious palpable abnormalities. Note on Cornelia scores and lifetime risk: 1. A Cornelia score greater than 3% is considered moderate risk. If this is the case, consider specialist referral to assess eligibility for a risk reducing agent. 2. If overall lifetime risk for the development of breast cancer is 20% or higher, the patient may qualify for future screening with alternating mammogram and breast MRI. [facility], , 05/23/2025 11:41 AM. Electronically signed and approved by: Sreedhar Lyons M.D. Radiologist
--- NOTE | 2025-05-23 11:51 | BD ---
EXAMINATION TYPE: Axial Bone Density DATE OF EXAM: 05/23/2025 CLINICAL HISTORY: 79 years old Female. ICD-10 CODE: Z78.0 ASYMPTOMATIC MENOPAUSE , Additional Histor y: Height: 62 Weight: 183.8 FRAX RISK QUESTIONS: Alcohol (3 or more units per day): no Family History (Parent hip fracture): no Glucocorticoids (More than 3mos): no (Ex: prednisone, prednisolone, methylprednisolone, dexamethasone, and hydrocortisone). History of Fracture in Adulthood: no Secondary Osteoporosis: 1. Type 1 Diabetes: no 2. Hyperthyroidism: no 3. Menopause before 45: no 4. Malnutrition: no 5. Chronic liver disease: no Rheumatoid Arthritis: no Current Tobacco Use: no RISK FACTORS HISTORY OF: Surgery to Spine/Hip(right/left)/Wrist (right/left): no EXAM MEASUREMENTS: Bone mineral densitometry was performed using the [employer] System. Bone mineral density as measured about the Lumbar spine is: ----- L1-L4(G/cm2): 1.521 T Score Values are as follows: ----- L1: 2.2 ----- L2: 2.0 ----- L3: 3.9 ----- L4: 2.8 ----- L1-L4: 2.8 Z Score Values are as follows: ----- L1: 3.4 ----- L2: 3.2 ----- L3: 5.1 ----- L4: 4.0 ----- L1-L4: 4.0 Bone mineral density has: increased 15.3 % since study of: 05.09.2012 Bone mineral density about the R hip (g/cm2): 1.076 Bone mineral density about the L hip (g/cm2): 1.008 T Score values are as follows: -----R Neck: -0.4 -----L Neck: -0.8 -----R Total: 0.5 -----L Total: 0.0 Z Score values are as follows: -----R Neck: 1.2 -----L Neck: 0.8 -----R Total: 2.0 -----L Total: 1.4 Bone mineral density has: decreased -5.3 % since study of: 05.09.2012 FRAX%s: The graph provided illustrates a 5.5% chance for a major osteoporotic fx and a 0.8% chance fo r the hips probability for fx in 10 years time. IMPRESSION: Normal (Values between +1 and -1 indicate normal bone mass). Consider repeating this study in 5 year s or sooner if there is some new clinical indication. NOTE: T-SCORE=SD OF THE YOUNG ADULT MEAN. [facility], , 05/23/2025 11:49 AM
== END | disposition home or self-care (01) ==
LOC: RADBDWWP 09:01
PROVIDERS: ATTEND Family Medicine
DX: Z12.31 Encounter for screening mammogram for malignant neoplasm of breast (principal); R92.323 Mammographic fibroglandular density, bilateral breasts; Z78.0 Asymptomatic menopausal state
CPT/HCPCS: 77063; 77067; 77080

== ENCOUNTER 2025-06-02 22:19 | Emergency (ER) | payer MEDICARE ==
--- NOTE | 2025-06-02 23:08 | ED ---
Neck Injury/Pain HPI - General Chief Complaint: Neck Pain/Injury Stated Complaint: left side pain Time Seen by Provider: 06/02/25 22:34 Source: patient, RN notes reviewed Mode of arrival: ambulatory Limitations: no limitations - History of Present Illness MD Complaint: neck pain Onset/Timin -: days(s) Severity scale (1-10): 10 Consistency: constant Associated Symptoms: none Treatments Prior to Arrival: other (Aspirin) - Related Data Home Medications Medication Instructions Recorded Confirmed Aspirin EC [Ecotrin Low Dose] 81 mg PO DAILY 06/03/24 06/03/24 Atorvastatin [Lipitor] 40 mg PO DAILY 06/03/24 06/03/24 Calcium Citrate/Vitamin D3 1 tab PO DAILY 06/03/24 06/03/24 [Citracal + D Maximum Caplet] Cetirizine HCl [Zyrtec] 10 mg PO DAILY 06/03/24 06/03/24 Empagliflozin [Jardiance] 10 mg PO DAILY 06/03/24 06/03/24 Glimepiride [Amaryl] 2 mg PO DAILY 06/03/24 06/03/24 Ibuprofen [Advil] 200 mg PO DAILY 06/03/24 06/03/24 Multivit-Min/Iron Fum/Folic AC 1 tab PO DAILY 06/03/24 06/03/24 [One-A-Day Women's Complete Tab] Pentoxifylline [TRENtal] 400 mg PO TID 06/03/24 06/03/24 Turmeric Root Extract [Turmeric] 500 mg PO DAILY 06/03/24 06/03/24 lisinopriL [Zestril] 20 mg PO DAILY 06/03/24 06/03/24 Previous Rx's Medication Instructions Recorded HYDROcodone/APAP 5-325MG [Eclectic 1 tab PO Q6HR PRN 3 Days #12 tab 06/06/24 5-325] Cyclobenzaprine [Flexeril] 10 mg PO TID PRN #15 tab 06/02/25 Ibuprofen [Motrin] 800 mg PO Q8HR PRN #30 tab 06/02/25 Lidocaine 4% Patch 1 patch TOPICAL Q24H PRN #10 patch 06/02/25 Allergies Allergy/AdvReac Type Severity Reaction Status Date / Time latex Allergy Rash/Hives Verified 06/02/25 22:23 tetanus and diphtheria Allergy Rapid Verified 06/02/25 22:23 toxoids Heart Rate [tetanus & diphtheria toxoids] cortisone AdvReac redness,swelling Verified 06/02/25 22:23 @injection site Review of Systems ROS Statement: Those systems with pertinent positive or pertinent negative responses have been documented in the HPI. ROS Other: All systems not noted in ROS Statement are negative. Past Medical History Past Medical History: Cancer, Diabetes Mellitus, GERD/Reflux, Hyperlipidemia, Hypertension Additional Past Medical History / Comment(s): recent diarrhea for few days, diverticulitis, ?bladder cancer-discovered when had bowel resection per pt.- never had any tx. for that she knows of History of Any Multi-Drug Resistant Organisms: None Reported Past Surgical History: Bowel Resection, Cholecystectomy, Hysterectomy, Joint Replacement, Orthopedic Surgery Additional Past Surgical History / Comment(s): carpal tunnel surgery, pradeep knee replaced, left wrist surg. Past Anesthesia/Blood Transfusion Reactions: Postoperative Nausea & Vomiting (PONV) Past Psychological History: No Psychological Hx Reported Smoking Status: Never smoker Past Alcohol Use History: Occasional Past Drug Use History: None Reported - Past Family History Father Family Medical History: Cancer Mother Family Medical History: Cancer General Exam Limitations: no limitations General appearance: alert, in no apparent distress Head exam: Present: atraumatic, normocephalic, normal inspection Eye exam: Present: normal appearance, PERRL, EOMI. Absent: scleral icterus, conjunctival injection, periorbital swelling ENT exam: Present: normal exam, mucous membranes moist Neck exam: Present: normal inspection. Absent: tenderness, meningismus, lymphadenopathy Respiratory exam: Present: normal lung sounds bilaterally. Absent: respiratory distress, wheezes, rales, rhonchi, stridor, accessory muscle use Cardiovascular Exam: Present: regular rate, normal rhythm, normal heart sounds. Absent: systolic murmur, diastolic murmur, rubs, gallop, clicks GI/Abdominal exam: Present: soft, normal bowel sounds. Absent: distended, tenderness, guarding, rebound, rigid Extremities exam: Present: normal inspection, full ROM, normal capillary refill. Absent: tenderness, pedal edema, joint swelling, calf tenderness Back exam: Present: tenderness, muscle spasm (Positive left trapezius muscle spasm with diffuse tenderness.), vertebral tenderness (Patient notes cervical spine tenderness without obvious crepitus or step-off), other (Distal LUE neurovascular and motor function intact. Radial pulse +2). Absent: full ROM (Patient unable to fully rotate head to left due to pain/muscle spasm.) Neurological exam: Present: alert, oriented X3, CN II-XII intact Psychiatric exam: Present: normal affect, normal mood Skin exam: Present: warm, dry, intact, normal color. Absent: rash Course Vital Signs 06/02/25 06/03/25 06/03/25 22:20 00:14 01:00 Temperature 98.3 F 97.7 F 98.1 F Pulse Rate 86 79 75 Respiratory 18 16 16 Rate Blood Pressure 218/85 215/82 169/78 O2 Sat by Pulse 96 96 Oximetry Medical Decision Making - Medical Decision Making Was pt. sent in by a medical professional or institution (, PA, RETAIL CLIENT MANAGER, urgent care, hospital, or [facility]...) When possible be specific @ -[No] Did you speak to anyone other than the patient for history (EMS, parent, family, police, friend...)? What history was obtained from this source @ -[No] Did you review nursing and triage notes (agree or disagree)? Why? @ -[I reviewed and agree with nursing and triage notes] Were old charts reviewed (outside hosp., previous admission, EMS record, old EKG, old radiological studies, urgent care reports/EKG's, [facility] records)? Report findings @ -[No old charts were reviewed] Differential Diagnosis (chest pain, altered mental status, abdominal pain women, abdominal pain men, vaginal bleeding, weakness, fever, dyspnea, syncope, headache, dizziness, GI bleed, back pain, seizure, CVA, palpatations, mental health, musculoskeletal)? @ -Differential Musculoskeletal Muscular strain, contusion, ligament sprain, fracture, arthritis, septic arthritis, bursitis, cellulitis, muscle spasm, nerve compression, DVT, arterial occlusion, herpes zoster, electrolyte abnormality, tumor.... This is not meant to be in all inclusive list EKG interpreted by me (3pts min.). @ -A-fib without ST deviation or T wave inversion. Ventricular rate 72 bpm, QRS 102 ms, QTc 391 ms X-rays interpreted by me (1pt min.). @ -[None done] CT interpreted by me (1pt min.). @ -[None done] U/S interpreted by me (1pt. min.). @ -[None done] What testing was considered but not performed or refused? (CT, X-rays, U/S, labs)? Why? @ -[None] What meds were considered but not given or refused? Why? @ -[None] Did you discuss the management of the patient with other professionals (professionals i.e. , PA, RETAIL CLIENT MANAGER, lab, RT, psych nurse, high school social studies tutor, dump truck operator, teacher, strategic intelligence officer, business case analyst)? Give summary @ -[No] Was smoking cessation discussed for >3mins.? @ -[No] Was critical care preformed (if so, how long)? @ -[No] Were there social determinants of health that impacted care today? How? (Homelessness, low income, unemployed, alcoholism, drug addiction, transportation, low edu. Level, literacy, decrease access to med. care, senior living, rehab)? @ -[No] Was there de-escalation of care discussed even if they declined (Discuss DNR or withdrawal of care, Hospice)? DNR status @ -[No] What co-morbidities impacted this encounter? (DM, HTN, Smoking, COPD, CAD, Cancer, CVA, ARF, Chemo, Hep., AIDS, mental health diagnosis, sleep apnea, morbid obesity)? @ -[None] Was patient admitted / discharged? Hospital course, mention meds given and route, prescriptions, significant lab abnormalities, going to OR and other pertinent info. @ -[hospital course] Undiagnosed new problem with uncertain prognosis? @ -[No] Drug Therapy requiring intensive monitoring for toxicity (Heparin, Nitro, Insulin, Cardizem)? @ -[No] Were any procedures done? @ -[No] Diagnosis/symptom? @ -Trapezius muscle spasm Acute, or Chronic, or Acute on Chronic? @ -Acute Uncomplicated (without systemic symptoms) or Complicated (systemic symptoms)? @ -Uncomplicated Side effects of treatment? @ -[No] Exacerbation, Progression, or Severe Exacerbation? @ -[No] Poses a threat to life or bodily function? How? (Chest pain, [place], [place], pneumonia, PE, COPD, DKA, ARF, appy, cholecystitis, CVA, Diverticulitis, Homicidal, Suicidal, threat to staff... and all critical care pts) @ -[No] Disposition Clinical Impression: Strain of neck muscle Disposition: HOME SELF-CARE Condition: Fair Instructions (If sedation given, give patient instructions): Cervical Strain (ED) Additional Instructions: Apply warm compress to affected area for 10 minutes up to 4 times daily. Alternate Tylenol/Motrin every 4 hours for pain. Gentle massage and stretching of affected area also recommended. Follow-up with PCP regarding any ongoing symptoms. Prescriptions: Cyclobenzaprine [Flexeril] 10 mg PO TID PRN #15 tab PRN Reason: Muscle Spasm Lidocaine 4% Patch 1 patch TOPICAL Q24H PRN #10 patch PRN Reason: Pain Ibuprofen [Motrin] 800 mg PO Q8HR PRN #30 tab PRN Reason: Pain Is patient prescribed a controlled substance at d/c from ED?: No Referrals: Tyler Alfredo MD [Primary Care Provider] - 1-2 days Time of Disposition: 01:11
--- NOTE | 2025-06-02 23:20 | XR ---
EXAM: XR Cervical Spine, 2 or 3 Views CLINICAL HISTORY: ITS.REASON XR Reason: Neck pain/stiffness, atraumatic TECHNIQUE: Frontal and lateral views of the cervical spine. COMPARISON: No previous studies. FINDINGS: Vertebrae: Straightening and reversal of the curvature of the cervical spine comparative muscle spasm. Levoscoliosis. There is a normal relationship of C1 and C2. No definite fracture. Disc spaces: Mild to moderate degenerative disc disease. Soft tissues: Prevertebral soft tissues are unremarkable. Vasculature: Atherosclerotic disease. IMPRESSION: 1. Straightening and reversal of the curvature of the cervical spine comparative muscle spasm. 2. Mild to moderate degenerative disc disease. 3. Atherosclerotic disease.
[2025-06-02] MEDS: LIDOCAINE 4% PATCH TOPICAL ONE (23:52)
[2025-06-02] MEDS: ORPHENADRINE 30 MG/ML 2 ML VIAL IM STA (23:54)
[2025-06-02] MEDS: KETOROLAC 15 MG/ML 1 ML VIAL IM STA (23:54)
[2025-06-02] MEDS: ACETAMINOPHEN TAB 500 MG TAB PO STA (23:55)
[2025-06-03 00:30] VITALS: RESP 16
[2025-06-03] MEDS: LABETALOL 200 MG TAB PO STA (00:30)
[2025-06-03 01:08] VITALS: BP 169/78; PULSE 75; TEMP 98.1
== END 2025-06-03 01:23 | disposition home or self-care (01) ==
LOC: EC 22:19
DX: S16.1XXA Strain of muscle, fascia and tendon at neck level, initial encounter (principal); Z91.040 Latex allergy status; Z88.7 Allergy status to serum and vaccine; Z88.8 Allergy status to other drugs, medicaments and biological substances; X58.XXXA Exposure to other specified factors, initial encounter
CPT/HCPCS: 72040; 99284; 96372 ×2; J2360; J1885; 93005; 99283